=== PATIENT | female | born 1950 | race Caucasian/White ===

== ENCOUNTER 2023-01-09 12:24 | Outpatient (REF) | payer OTHER, SELFPAY ==
[2023-01-09 12:55] LABS: MANUAL DIFF FLAG NO
[2023-01-09 13:01] LABS: Basophils Percent Auto 0.5 % (0-2); Eosinophils Absolute Auto 0.1 X10*3/uL (0.0-0.4); Hematocrit 36.4 % (37.0-47.0); Hemoglobin 12.5 g/dl (12.0-16.0); Imm Gran Abs Auto 0.02 X10*3/uL (0.00-0.03); Imm Gran Pct Auto 0.3 % (0.0-0.4); Lymphocytes Absolute Auto 1.1 X10*3/uL (1.2-4.9); Lymphocytes Percent Auto 18.4 % (20-40); Mean Corpuscular HGB Conc 34.3 g/dl (31.0-35.0); Mean Corpuscular Hemoglobin 32.1 pg (27.0-33.0); Mean Corpuscular Volume 93.3 fL (80.0-98.0); Mean Platelet Volume 8.7 fL (9.4-12.3); Monocytes Absolute Auto 0.6 X10*3/uL (0.1-1.2); Monocytes Percent Auto 9.6 % (2-11); Neutrophils Absolute Auto 4.2 x10*3/uL (2.0-8.3); Neutrophils Percent Auto 69.2 % (45-73); Platelet Count 337 X10*3/uL (160-400)
[2023-01-09 14:58] LABS: Alanine Aminotransferase 10 U/L (0-31); Albumin Level 4.5 g/dL (3.5-5.0); Alkaline Phosphatase 70 U/L (39-117); Anion Gap 13 (12-20); Aspartate Amino Transferase 15 U/L (5-31); Bilirubin Total 0.4 mg/dL (0.0-1.0); Blood Urea Nitrogen 25 mg/dL (9-16); Calcium 9.6 mg/dL (8.4-10.2); Carbon Dioxide 26 mmol/L (22-29); Chloride 101 mmol/L (96-108); Estimated Glomerular Filt Rate 52; Glucose Random 101 mg/dL (60-115); Potassium 5.3 mmol/L (3.3-5.1); Sodium 135 mmol/L (135-145); Total Protein 7.2 g/dL (6.5-8.0); Vitamin D 25-OH Total 79.8 ng/mL (>30)
== END 2023-01-09 12:25 | disposition home or self-care (01) ==
LOC: HO.MANLDS 12:24
PROVIDERS: Visit Provider Internal Medicine
DX: I10 Essential (primary) hypertension (principal); E55.9 Vitamin D deficiency, unspecified
CPT/HCPCS: 36415; 80053; 82306; 85025

== ENCOUNTER 2023-03-14 09:16 | Outpatient (REF) | payer OTHER, SELFPAY ==
[2023-03-14 12:04] LABS: Anion Gap 12 (12-20); Blood Urea Nitrogen 20 mg/dL (9-16); Calcium 9.4 mg/dL (8.4-10.2); Carbon Dioxide 27 mmol/L (22-29); Chloride 107 mmol/L (96-108); Estimated Glomerular Filt Rate 55; Glucose Random 104 mg/dL (60-115); Potassium 4.7 mmol/L (3.3-5.1); Sodium 141 mmol/L (135-145)
== END 2023-03-14 09:17 | disposition home or self-care (01) ==
LOC: HO.MANLDS 09:16
PROVIDERS: Visit Provider Internal Medicine
DX: E87.1 Hypo-osmolality and hyponatremia (principal)
CPT/HCPCS: 36415; 80048

== ENCOUNTER 2023-03-21 08:53 | Outpatient (REF) | payer OTHER, SELFPAY ==
[2023-03-21 11:49] LABS: Anion Gap 13 (12-20); Blood Urea Nitrogen 17 mg/dL (9-16); Calcium 9.7 mg/dL (8.4-10.2); Carbon Dioxide 27 mmol/L (22-29); Chloride 100 mmol/L (96-108); Estimated Glomerular Filt Rate 53; Glucose Random 92 mg/dL (60-115); Sodium 135 mmol/L (135-145)
== END 2023-03-21 08:54 | disposition home or self-care (01) ==
LOC: HO.MANLDS 08:53
PROVIDERS: Visit Provider Internal Medicine
DX: E87.1 Hypo-osmolality and hyponatremia (principal)
CPT/HCPCS: 36415; 80048

== ENCOUNTER 2023-03-28 09:18 | Outpatient (REF) | payer OTHER, SELFPAY ==
[2023-03-28 12:15] LABS: Anion Gap 9 (12-20); Blood Urea Nitrogen 14 mg/dL (9-16); Calcium 9.3 mg/dL (8.4-10.2); Carbon Dioxide 31 mmol/L (22-29); Chloride 102 mmol/L (96-108); Estimated Glomerular Filt Rate 58; Glucose Random 110 mg/dL (60-115); Potassium 5.6 mmol/L (3.3-5.1); Sodium 136 mmol/L (135-145)
== END 2023-03-28 09:19 | disposition home or self-care (01) ==
LOC: HO.MANLDS 09:18
PROVIDERS: Visit Provider Internal Medicine
DX: E87.1 Hypo-osmolality and hyponatremia (principal)
CPT/HCPCS: 36415; 80048

== ENCOUNTER 2023-03-31 09:48 | Outpatient (REF) | payer OTHER, SELFPAY ==
[2023-03-31 12:24] LABS: Anion Gap 13 (12-20); Blood Urea Nitrogen 20 mg/dL (9-16); Calcium 9.6 mg/dL (8.4-10.2); Carbon Dioxide 29 mmol/L (22-29); Chloride 104 mmol/L (96-108); Estimated Glomerular Filt Rate 55; Glucose Random 114 mg/dL (60-115); Potassium 5.6 mmol/L (3.3-5.1); Sodium 140 mmol/L (135-145)
== END 2023-03-31 09:49 | disposition home or self-care (01) ==
LOC: HO.MANLDS 09:48
PROVIDERS: Visit Provider Internal Medicine
DX: E87.1 Hypo-osmolality and hyponatremia (principal)
CPT/HCPCS: 36415; 80048

== ENCOUNTER 2023-04-11 11:26 | Outpatient (REF) | payer OTHER, SELFPAY ==
[2023-04-11 14:44] LABS: Anion Gap 14 (12-20); Blood Urea Nitrogen 22 mg/dL (9-16); Calcium 9.4 mg/dL (8.4-10.2); Carbon Dioxide 28 mmol/L (22-29); Chloride 106 mmol/L (96-108); Estimated Glomerular Filt Rate > 60; Glucose Random 87 mg/dL (60-115); Potassium 4.7 mmol/L (3.3-5.1); Sodium 143 mmol/L (135-145)
== END 2023-04-11 11:27 | disposition home or self-care (01) ==
LOC: HO.MANLDS 11:26
PROVIDERS: Visit Provider Internal Medicine
DX: E87.5 Hyperkalemia (principal)
CPT/HCPCS: 36415; 80048

== ENCOUNTER 2024-08-09 11:45 | Outpatient (REF) | payer OTHER, SELFPAY ==
[2024-08-09 13:48] LABS: Appearance Urine Clear; Color Urine Yellow; Glucose Urine UA Negative (Negative); Leukocyte Esterase Urine Negative (Negative); Nitrite Urine Negative (Negative); PH 6.5 (5.0-9.0); Specific Gravity - Urine <= 1.005 (1.005-1.025); Urine Blood Negative (Negative); Urine Ketones Negative (Negative); Urine Protein Negative (Neg-Trace)
== END 2024-08-09 11:46 | disposition home or self-care (01) ==
LOC: HO.MANLDS 11:45
PROVIDERS: Physician Assistant; Visit Provider Internal Medicine
DX: N39.0 Urinary tract infection, site not specified (principal)
CPT/HCPCS: 81003

== ENCOUNTER 2024-12-20 14:00 | Outpatient (REF) | payer OTHER, SELFPAY ==
--- OUTSIDE RECORDS SUMMARY | 2024-12-20 14:22 | XMS_ITS | Continuity of Care Document ---
Author Organization [facility] Address [address] [place] [place] [address] Assessment Encounter Date Assessment Date Assessment LastModified by Organization Details LastModified Time 12/20/2024 12/20/2024 The patient was advised to continue a healthy diet and exercise regularly. 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 Labs will be sent to evaluate blood count, renal function lipids and vitamin D. Not available 12/20/2024 13:52:21 Plan of Treatment Reminders Order Date Submit Date Provider Last Modified By Organization Details Last Modified Time Details Appointments MEDICARE ANNUAL WELLNESS 2024 01:30P M DR ENCINAS Not available Not available Not available FOLLOW UP 15 2024 02:30P M DR ENCINAS Not available Not available Not available Lab ESR (erythroc yte sedimenta tion rate), blood - as needed 2024 025 [facility], [place], [address], 12/20/2024 13:58:24 Referral None recorded. Procedures None recorded. Surgeries None recorded. Imaging bone density 2024 025 [facility], [address] [place], [address], 12/20/2024 13:52:48 Medication Orders prednison e 10 mg tablet 2024 025 [facility], [address] [place], [address], 12/20/2024 13:57:05 Patient TargetsNo targets recorded. Patient Instructions Encounter Date Encounter Id Patient Instructions Last Modified By Organization Details Last Modified Time 12/20/2024 [id number] polymyalgia rheumatica: care instructions Not available 12/20/2024 13:57:03 Reason for Referral None Reported. Problems Name Problem SNOMED Code Status Onset Date Resolution Date Notes Provider Name and Address Organization Details Recorded Time Neck pain 89357774 Active 2018 Not Available [facility] 3 15:31:16 Irritabl e bowel syndrome with diarrhea 266473018 Active 2018 Not Available [facility] 3 15:31:16 Kate angular cheiliti s 593617708 Active 2022 Not Available [facility] 3 15:31:16 Supraven tricular tachycar pavan 8532659 Active 2022 Not Available [facility] 3 15:31:16 Nummular eczema 51151472 Active 2022 Not Available [facility] 3 15:31:16 Hyperkal emia 38691813 Active 2022 Not Available [facility] 3 15:31:16 Left upper quadrant pain 981999319 Active 2022 Not Available [facility] 3 15:31:16 Divertic ulosis of colon 651823630 Active 2022 Justin Encinas DO [address] [place], [address], [facility] 3 10:01:46 Pain of left breast 8298204685 Active 2023 MICHELE SOSA [address] [place], [address], [facility] 4 12:10:58 Acute mastitis 51337127 Active 2023 MICHELE SOSA [address] [place], [address], [facility] 4 12:12:23 Overacti ve urinary bladder 305490392 Active 2023 MICHELE SOSA [address] [place], [address], [facility] 4 12:14:24 Mass of left breast 68941668640 221418 Active 2023 MICHELE SOSA [address] [place], [address], [facility] 4 11:59:26 Depressi ve disorder 98522665 Active 2023 MICHELE SOSA [address] [place], [address], [facility] 4 14:26:38 Acute urinary tract infectio n 122355578 Active 2023 MICHELE SOSA [address] [place], [address], [facility] 4 14:29:13 Dysuria- frequenc y syndrome 1188593 Active 2023 MICHELE SOSA [address] [place], [address], [facility] 4 14:43:47 Postmeno pausal osteopen ia 207549185 Active 2024 Justin Encinas DO [address] [place], [address], [facility] 5 13:50:31 Polymyal sandra rheumati ca 00062353 Active 2024 Justin Encinas DO [address] [place], [address], [facility] 5 13:52:30 [facility] hyperten tay 67397615 Active 2017 Not Available [facility] 3 15:31:16 Degenera tion of interver tebral disc 84813055 Active 2017 Not Available [facility] 3 15:31:16 Alopecia 20366468 Active 2017 Not Available [facility] 3 15:31:16 Insomnia 521684021 Active 2017 Not Available [facility] 3 15:31:16 Anxiety 52690061 Active 2017 Not Available [facility] 3 15:31:16 Knee pain Active 2017 Not Available [facility] 3 15:31:16 Hyponatr emia 01684766 Active 2017 Hospitali zed from 03/31 - 04/02 N/V/D complicat ed by HCTZ Not Available [facility] 3 15:31:16 Disorder of lung 50606843 Active [address] 07/13/17 repeat 01/28 Not Available [facility] 3 15:31:16 Anemia 972852530 Active 2017 Hospitali zation 06/23 GI bleed, EGD non bleeding ulcers Not Available [facility] 3 15:31:16 Adenomat ous polyp of colon 263006655 Active 2017 c scop Not Available [facility] 3 15:31:16 Left bundle branch block 33196984 Active 2017 Not Available [facility] 3 15:31:16 Notes:Some problems listed i n Documents: #[id number], #[id number] could not be added to this patient's chart. Please review these documents and add these problems to the patient's chart manually as needed. Problem Notes None recorded. Procedures Surgical History Date Name Laterality Status Provider Name and Address Organization Details Recorded Time 07/18/20 23 Suture/Staple removal completed MICHELE SOSA [address] [place] [address], [address], [facility] 07/19/2023 08:50:53 06/26/20 17 Colonoscopy completed Kanwal Young [facility] 06/20/2018 11:36:37 Imaging Results None recorded. Procedure Notes None recorded. Medical Equipment None Reported. Allergies Allergen ID Allergen Name Allergen Category Reaction Reaction Severity Criticality Documentation Date Start Date Code Code System Note Provider Name and Address Organization Details Recorded Time 6708 spironola ctone medicatio n other severe Not available 03/10/2023 9997 RxNorm sever e hypon atrem ia occur ed Not Available [facility] 3 15:31:16 Medications Name Sig Start Date Stop Date Status Note LastModified by Organization Details LastModified Time prednisone 10 mg tablet Take 4 tablets every day by oral route for 30 days. 2024 active Not Available Not Available Not Avai lable doxycycline hyclate 100 mg capsule TAKE 1 CAPSULE BY MOUTH TWICE A DAY FOR 7 DAYS 07/08 completed Not Available Not Available Not Available oxybutynin chloride ER 10 mg tablet,exte nded release 24 hr TAKE 1 TABLET BY MOUTH EVERY DAY active Not Available Not Available No t Available azithromyci n 250 mg tablet TAKE 2 TABLETS (500 MG) BY ORAL ROUTE ONCE DAILY FOR 1 DAY THEN 1 TABLET (250 MG) BY ORAL ROUTE ONCE DAILY FOR 4 DAYS 03/30 completed Not Available Not Available Not Available fluticasone propionate 0.05 % topical cream 05/22 completed Not Available Not Available Not Available lisinopril 20 mg tablet TAKE 1 TABLET BY MOUTH EVERY DAY FOR 90 DAYS 07/18 completed Not Available Not Available Not Available prednisone 20 mg tablet TAKE 2 TABLETS BY MOUTH EVERY DAY FOR 3 DAYS NEEDED FOR FLARE 01/09 completed Not Available Not Available Not Available metoprolol succinate ER 100 mg tablet,exte nded release 24 hr TAKE 1 TABLET BY MOUTH EVERY DAY active Not Available Not Available No t Available amlodipine 5 mg tablet TAKE 1 TABLET BY MOUTH EVERY DAY 01/09 completed Not Available Not Available Not Available sulfamethox azole 800 mg-trimetho prim 160 mg tablet TAKE 1 TABLET BY MOUTH EVERY 12 HOURS FOR 7 DAYS active Not Available Not Available No t Available minoxidil 2.5 mg tablet TAKE 1 TABLET BY MOUTH DAILY active Not Available Not Available No t Available triamcinolo ne acetonide 0.1 % topical cream APPLY THIN COAT TO AFFECTED AREA TWICE A DAY 07/08 completed Not Available Not Available Not Available spironolact one 25 mg tablet TAKE 1 TABLET BY MOUTH TWICE A DAY 03/10 completed Not Available Not Available Not Available Tessalon Perles 100 mg capsule Take 1 capsule 3 times a day by oral route. 03/30 completed Not Available Not Available Not Available lorazepam 0.5 mg tablet TAKE 1 TABLET BY MOUTH THREE TIMES A DAY NEEDED FOR 7 DAYS APPT NEEDED FOR FURTHER REFILLS 03/10 completed Not Available Not Available Not Available amlodipine 10 mg tablet TAKE 1 TABLET BY MOUTH EVERY DAY 07/10 completed Not Available Not Available Not Available triamcinolo ne acetonide 0.1 % topical ointment APPLY A THIN LAYER TO THE AFFECTED AREA(S) BY TOPICAL ROUTE 2 TIMES PER DAY for 2 weeks 07/20 completed Not Available Not Available Not Available clotrimazol e-betametha sone 1 %-0.05 % topical cream APPLY TO AFFECTED AREA TWICE A DAY FOR 2 WEEKS IN THE MORNING AND EVENING (AND SURROUNDI NG AREAS) 03/10 completed Not Available Not Available Not Available lisinopril 10 mg tablet Take 1 tablet every day by oral route for 90 days. 07/20 completed Not Available Not Available Not Available oxybutynin chloride ER 5 mg tablet,exte nded release 24 hr TAKE 1 TABLET BY MOUTH EVERY DAY FOR 30 DAYS active Not Available Not Available No t Available omeprazole 20 mg capsule,del ayed release 03/19 completed Not Available Not Available Not Available mometasone 0.1 % topical ointment PLEASE SEE ATTACHED FOR DETAILED DIRECTION S 07/08 completed Not Available Not Available Not Available zolpidem 5 mg tablet TAKE 1 TABLET BY MOUTH EVERY DAY AT BEDTIME NEEDED 02/20 completed Not Available Not Available Not Available metoprolol succinate ER 25 mg tablet,exte nded release 24 hr TAKE 1 TABLET BY MOUTH EVERY DAY 01/09 completed Not Available Not Available Not Available Cheratussin AC 10 mg-100 mg/5 mL oral liquid Take 10 mL every 6 hours by oral route for 7 days. 05/08 completed Not Available Not Available Not Available zolpidem 10 mg tablet TAKE 1 TABLET BY MOUTH NEEDED FOR SLEEP NOT FOR DAILY USE MUST LAST 45 DAYS PER MD active Not Available Not Available No t Available methylpredn isolone 4 mg tablets in a dose pack 24 mg PO on day 1, then decr. by 4 mg/day x5 days per dose pack instructi ons 03/30 completed Not Available Not Available Not Available lisinopril 40 mg tablet TAKE 1 TABLET BY MOUTH EVERY DAY- needs appt for any further refills 2020 active Not Available Not Available Not Avai lable finasteride 5 mg tablet TAKE 1 TABLET BY MOUTH EVERY DAY 12/20 completed Not Available Not Available Not Available mometasone 0.1 % topical cream APPLY TO AFFECTED AREAS TWICE A DAY FOR 1 WEEK, THEN TAKE 1 WEEK OFF. REPEAT NEEDED 12/20 completed Not Available Not Available Not Available Ventolin HFA 90 mcg/actuati on aerosol inhaler 2 puffs inhaled q4-6h prn 03/30 completed Not Available Not Available Not Available escitalopra m 5 mg tablet TAKE 1 TABLET BY MOUTH EVERY DAY active Not Available Not Available No t Available metoprolol tartrate 25 mg tablet TAKE 1 TABLET TWICE A DAY BY ORAL ROUTE FOR 90 DAYS. 07/10 completed Not Available Not Available Not Available tizanidine 4 mg capsule 01/09 completed Not Available Not Available Not Available benzonatate Take one tablet 3 times a day 04/27 completed Not Available Not Available Not Available Mucinex DM 05/08 completed Not Available Not Available Not Available hydrochloro thiazide 12.5 mg tablet 03/19 completed Not Available Not Available Not Available cyclobenzap rine 7.5 mg tablet TAKE 1 TABLET BY MOUTH AT BEDTIME FOR 14 DAYS*NOT CVD* 01/09 completed Not Available Not Available Not Available Shingrix (PF) 50 mcg/0.5 mL intramuscul ar suspension, kit 02/20 completed Not Available Not Available Not Available Fluad Quad 2546-9628(6 5yr up)(PF) 60 mcg (15 mcg x 4)/0.5mL IM syringe ADM 0.5ML IM UTD 01/09 completed Not Available Not Available Not Available Vitals Date Recorded Body height Body mass index (BMI) Body weight Heart rate Oxygen saturation Oxygen saturation in Arterial blood by Pulse oximetry Systolic blood pressure Diastolic blood pressure Provider Name and Address Organization Details Last Updated DateTime 5 151.13 cm 25.8 kg/m2 86195.0 1 g 80 /min 98 % 98 % 170 mm[Hg] 80 mm[Hg] [facility] 5 13:38:05 Social History Question Answer Notes LastModified by Organizat ion Details LastModified Time Tobacco Smoking Status Former Smoker [facility] 12/20/2024 13:35:59 What Was The Date Of Your Most Recent Tobacco Screening? 12/20/2024 [email or web address] Information not available 12/20/2024 How Many Years Have You Smoked Tobacco? 40 [id number] Information not available 09/15/2020 Do You Or Have You Ever Used Any Other Forms Of Tobacco Or Nicotine? No Information not available 01/09/2023 Sex: Unknown Functional Status None recorded. Mental Status None recorded. Family History Nothing Reported. Medical History No medical history recorded. Gynecological HistoryNo gynecological history recorded. Obstetrics History GPAL:G 0 P 0 0 0 0 Immunizations Vaccine Type Date Status Note Provider Nam e and Address Organization Details Recorded Time influenza, unspecified formulation 2 completed Not Available [facility] 09/02/2023 15:31:16 influenza, unspecified formulation 4 completed Addison goss [facility] 09/30/2024 08:11:09 Influenza, split virus, quadrivalent, preservative 9 completed Not Available [facility] 09/02/2023 15:31:16 Pneumococcal conjugate PCV 13 9 completed Not Available [facility] 09/02/2023 15:31:16 Past Encounters Encounter ID Performer Location Encounter Start Date Encounter Closed Date Diagnosis/Indication Diagnosis SNOMED-CT Code Diagnosis ICD10 Code Diagnosis Note [id number] Justin Encinas DO [facility] [address],[place] [address] 12/20/2024 13:31:00 12/20/2024 13:57:29 Active or passive immunization 475529060 Z23 Adult heal th examination 850946336 Z00.01 doing wel except for what appears to be PMR Depression screening 171 046530 Z13.31 neg Postmenopa usal osteopenia 031940733 M85.80 Polymyalgi a rheumatica 25197768 M35.3 Health Concerns Section Related Observation LastModified by Organization Detai ls LastModified Time None Recorded Concern Status LastModified by Organization Details LastModified Time None Recorded Payers Encounter Date Sequence Insurance Name Policy Number Policy Reed Covered Member ID Reed Member ID Guarantor Name 12/20/2024 2 MEDICARE [place]: [facility] Emma Godwin [id number] Emma Godwin 12/20/[address] [facility] (MEDICARE REPLACEMENT/A DVANTAGE - HMO) [id number] Emma Godwin [id number] Emma Godwin Notes Date Note Type Note Provider Name a nd Address Organization Details Recorded Time 5 text/html Annual WellnessReported bypatient.Diet and Nutrition:healthy diet Fracture Risk:no history of fractures; no recent explained fracture; no sudden unexplained fractures; no previous musculoskeletal injuries Physical Activity:good physical condition;does not exercise on a regular basis;decreased physical activity; due to recent pains Additional Lifestyle Factors:no tobacco use; no alcohol intake; stopped drinking alcohol Depression Risk:never feels sad, empty, or tearful; no loss of interest in activities; no significant changes in weight; no sleep disturbances or insomnia; no agitation; no loss of energy; no feelings of worthlessness or guilt; no thoughts of suicide; no history of depression; no history of mood disorders Hearing:no loss of hearing Vision:no vision problems here for wellnessrelates began over a month agovery sore muscle in upper arms and upper thighs hurts so much it can be diff to dressrelates tried yoga etc and not able to Justin AYnes Encinas DO [address] [facility], [place], [address], [facility] 12/20/2024 13:57:28 OBGyn Episode No OBEpisode recorded.
--- OUTSIDE RECORDS SUMMARY | 2024-12-20 14:22 | XMS_ITS | Data Portability ---
Author Organization [facility], Home Service Address [address] [place] [address] Assessment Encounter Date Assessment Date Assessment LastModified by Organization Details LastModified Time 12/20/2024 12/20/2024 The patient was advised to continue a healthy diet and exercise regularly. have a mammogram have a septic tank servicer evaluation have a dermatology skin screening. Labs [...] Not available Not available Not available Lab urinalysi s, dipstick 2023 024 [email or web address], [address] [place] [address], [address], [place], [address], 07/08/2024 14:23:19 ESR (erythroc yte sedimenta tion rate), blood - as needed 2024 025 [facility], [place], [address], 12/20/2024 13:58:24 Referral None recorded. Procedures None recorded. Surgeries None recorded. Imaging MAMMO, diagnosti c, digital, bilateral - left breast pain and possible lump inner lower quadrant around 6-7 oclock 2023 024 [email or web address] Not available 02/27/2024 15:25:26 bone density 2024 025 [facility], [address], [place], [address], 12/20/2024 13:52:48 Medication Orders oxybutyni n chloride ER 5 mg tablet,ex tended release 24 hr 2023 024 [email or web address] [facility] [address] [place], [address], 07/07/2024 09:24:40 doxycycli ne hyclate 100 mg capsule 2023 024 [facility] [address] [place], [address], 07/08/2024 14:25:40 Bactrim DS 800 mg-160 mg tablet 2023 024 [facility] [address] [place], [address], 07/08/2024 14:24:40 escitalop sangeetha 5 mg tablet [email or web address] [facility], [address] [place], [address], 07/30/2024 13:43:29 prednison e 10 mg tablet 2024 025 [facility] [address] [place], [address], 12/20/2024 13:57:05 Patient TargetsNo targets recorded. Patient Instructions Encounter Date Encounter Id Patient Instructions Last Modified By Organization Details Last Modified Time 12/20/2024 [id number] polymyalgia rheumatica: care instructions Not available 12/20/2024 13:57:03 Reason for Referral None Reported. Results Created Date Observation Date Name Description Value Unit Range Abnormal Flag Note LastModifiedBy Organization Detail LastModifiedTime 07/08/20 24 07/08/2024 urina lysis , dipst ick Leukocytes Modera te Not Available [facility] [address] [facility] [address], [place], [address], 07/08/2024 13:59:32 07/08/20 24 07/08/2024 urina lysis , dipst ick Nitrite negati ve Not Available [facility] [address] [address] [address], [place], [address], 07/08/2024 13:59:32 07/08/20 24 07/08/2024 urina lysis , dipst ick Urobilinogen .2 Not Available [facility] [address], [place], [address], 07/08/2024 13:59:32 07/08/20 24 07/08/2024 urina lysis , dipst ick Protein Trace Not Available [address], [place], [address], 07/08/2024 13:59:32 07/08/20 24 07/08/2024 urina lysis , dipst ick pH 6.0 Not Available [address], [place], [address], 07/08/2024 13:59:32 07/08/20 24 07/08/2024 urina lysis , dipst ick Blood Hemoly zed: Trace Not Available [address], [place], [address], 07/08/2024 13:59:32 07/08/20 24 07/08/2024 urina lysis , dipst ick Specific Barton 1.010 Not Available [address], [place], [address], 07/08/2024 13:59:32 07/08/20 24 07/08/2024 urina lysis , dipst ick Ketone Negati ve Not Available [facility] [address] [address], [place], [address], 07/08/2024 13:59:32 07/08/20 24 07/08/2024 urina lysis , dipst ick Bilirubin Negati ve Not Available [facility] [address] [facility] [address], [place], [address], 07/08/2024 13:59:32 07/08/20 24 07/08/2024 urina lysis , dipst ick Glucose Negati ve Not Available [facility] [address] [facility] [address], [place], [address], 07/08/2024 13:59:32 07/08/20 24 07/08/2024 urina lysis , dipst ick Appearance Slight ly Cloudy Not Available [facility] [address] [facility] [address], [place], [address], 07/08/2024 13:59:32 07/08/20 24 07/08/2024 urina lysis , dipst ick Color Pale Yellow Not Available [facility] [address] [facility] [address], [place], [address], 07/08/2024 13:59:32 09/01/20 23 08/31/2023 CT, abdom en, w/ contr ast No observ ation record ed. [email or web address] [address], [place], [address], 09/04/2023 08:43:42 09/26/20 23 09/25/2023 MAMMO , scree tiki, digit al, bilat eral No observ ation record ed. [facility] [address] [place] [address], [address], 09/27/2023 06:35:35 08/14/20 24 08/14/2024 US, bladd er No observ ation record ed. [email or web address] [address], [place], [address], 08/16/2024 14:42:47 Result Notes None recorded. Problems Name Problem SNOMED Code Status Onset Date Resolution Date Notes Provider Name and Address Organization Details Recorded Time Neck pain 82593486 Active 2018 Not Available [facility] 3 15:31:16 Irritabl e bowel syndrome with diarrhea 500991424 Active 2018 Not Available [facility] 3 15:31:16 Kate angular cheiliti s 876160207 Active 2022 Not Available [facility] 3 15:31:16 Supraven tricular tachycar pavan 2749900 Active 2022 Not Available [facility] 3 15:31:16 Nummular eczema 17658257 Active 2022 Not Available [facility] 3 15:31:16 Hyperkal emia 89250103 Active 2022 Not Available [facility] 3 15:31:16 Left upper quadrant pain 858305792 Active 2022 Not Available [facility] 3 15:31:16 Divertic ulosis of colon 132859526 Active 2022 Justin Encinas DO [address] [place], [address], [facility] 3 10:01:46 Pain of left breast 8471685729 Active 2023 MICHELE SOSA [address] [place], [address], [facility] 4 12:10:58 Acute mastitis 52043625 Active 2023 MICHELE SOSA [address] [place], [address], [facility] 4 12:12:23 Overacti ve urinary bladder 560985890 Active 2023 MICHELE SOSA [address] [place], [address], [facility] 4 12:14:24 Mass of left breast 60161008044 268544 Active 2023 MICHELE SOSA [address] [place], [address], [facility] 4 11:59:26 Depressi ve disorder 96555478 Active 2023 MICHELE SOSA [address] [place], [address], [facility] 4 14:26:38 Acute urinary tract infectio n 232490738 Active 2023 MICHELE SOSA [address] [place], [address], [facility] 4 14:29:13 Dysuria- frequenc y syndrome 0336498 Active 2023 MICHELE SOSA [address] [place], [address], [facility] 4 14:43:47 Postmeno pausal osteopen ia 079812824 Active 2024 Justin Encinas, DO [address] [place] [address], [address], [facility] 5 13:50:31 Polymyal sandra rheumati ca 12256650 Active 2024 Justin Encinas, DO [address] [place] [address], [address], [facility] 5 13:52:30 [facility] hyperten tay 17072530 Active 2017 Not Available [facility] 3 15:31:16 Degenera tion of interver tebral disc 69341962 Active 2017 Not Available [facility] 3 15:31:16 Alopecia 22474090 Active 2017 Not Available [facility] 3 15:31:16 Insomnia 521897273 Active 2017 Not Available [facility] 3 15:31:16 Anxiety 45573768 Active 2017 Not Available [facility] 3 15:31:16 Knee pain Active 2017 Not Available [facility] 3 15:31:16 Hyponatr emia 69503377 Active 2017 Hospitali zed from 03/31 - 04/02 N/V/D complicat ed by HCTZ Not Available [facility] 3 15:31:16 Disorder of lung 33451182 Active [address] 07/13/17 repeat 01/28 Not Available [facility] 3 15:31:16 Anemia 909840138 Active 2017 Hospitali zation - 06/23 GI bleed, EGD non bleeding ulcers Not Available [facility] 3 15:31:16 Adenomat ous polyp of colon 704209874 Active 2017 c scop Not Available [facility] 3 15:31:16 Left bundle branch block 00099276 Active 2017 Not Available [facility] 3 15:31:16 Notes:Some problems listed i n Documents: #[id number], #[id number] could not be added to this patient's chart. Please review these documents and add these problems to the patient's chart manually as needed. Problem Notes None recorded. Procedures Surgical History Date Name Laterality Status Provider Name and Address Organization Details Recorded Time 07/18/20 23 Suture/Staple removal completed MICHELE SOSA [address] [place], [address], [facility] 07/19/2023 08:50:53 06/26/20 17 Colonoscopy completed Kanwal Young [facility] 06/20/2018 11:36:37 Imaging Results Imaging Date Name Status LastModified by Organiz ation Details LastModified Time 08/31/2023 CT, abdomen, w/ contrast completed [email or web address] [address], [address], 09/04/2023 08:43:42 09/25/2023 MAMMO, screening, digital, bilateral completed [facility] [address] [place] [address], [address], 09/27/2023 06:35:35 08/14/2024 US, bladder completed [email or web address] Diana Gimenez [address], [address], 08/16/2024 14:42:47 Procedure Notes None recorded. Medical Equipment None Reported. Allergies Allergen ID Allergen Name Allergen Category Reaction Reaction Severity Criticality Documentation Date Start Date Code Code System Note Provider Name and Address Organization Details Recorded Time 6708 spironola ctone medicatio n other severe Not available 03/10/2023 9997 RxNorm sever e hypon atrem ia occur ed Not Available [facility] 15:31:16 Medications Name Sig Start Date Stop [...] Available Not Available Not Available Fluad Quad 7362-0102(6 5yr up)(PF) 60 mcg (15 mcg x 4)/0.5mL IM syringe ADM 0.5ML IM UTD 01/09 completed Not Available Not Available Not Available Vitals Date Recorded Body height Body mass index (BMI) Body weight Oxygen saturation Oxygen saturation in Arterial blood by Pulse oximetry Heart rate Systolic blood pressure Diastolic blood pressure Provider Name and Address Organization Details Last Updated DateTime 3 151.13 cm 24.8 kg/m2 07812.0 5 g 97 % 97 % 90 /min 120 mm[Hg] 74 mm[Hg] Radha Richardson [facility] 3 10:06:40 Date Recorded Body height Body mass index (BMI) Body weight Heart rate Oxygen saturation Oxygen saturation in Arterial blood by Pulse oximetry Systolic blood pressure Diastolic blood pressure Provider Name and Address Organization Details Last Updated DateTime 4 151.13 cm 26 kg/m2 49814.5 2 g 71 /min 95 % 95 % 124 mm[Hg] 80 mm[Hg] Wiliam Chen [facility] 4 11:56:16 Date Recorded Body height Body mass index (BMI) Body weight Heart rate Oxygen saturation Oxygen saturation in Arterial blood by Pulse oximetry Systolic blood pressure Diastolic blood pressure Provider Name and Address Organization Details Last Updated DateTime 4 151.13 cm 25.9 kg/m2 37551.7 3 g 76 /min 95 % 95 % 148 mm[Hg] 78 mm[Hg] Grace Perez [facility] 4 14:05:33 Date Recorded Body height Body mass index (BMI) Body weight Heart rate Oxygen saturation Oxygen saturation in Arterial blood by Pulse oximetry Systolic blood pressure Diastolic blood pressure Provider Name and Address Organization Details Last Updated DateTime 5 151.13 cm 25.8 kg/m2 46948.0 1 g 80 /min 98 % 98 % 170 mm[Hg] 80 mm[Hg] Radha Richardson [facility] 5 13:38:05 Social History Question Answer Notes LastModified by Organizat ion Details LastModified Time Tobacco Smoking Status Former Smoker Radha goss [facility] 12/20/2024 13:35:59 What Was The Date Of Your Most Recent Tobacco Screening? 12/20/2024 [email or web address] Information not available 12/20/2024 How Many Years Have You Smoked Tobacco? 40 [id number] Information not available 09/15/2020 Do You Or [...] influenza, unspecified formulation 2 completed Not Available [facility] 09/02/2023 15:31:16 influenza, unspecified formulation 4 [facility] 09/30/2024 08:11:09 Influenza, split virus, quadrivalent, preservative 9 completed Not Available [facility] 09/02/2023 15:31:16 Pneumococcal conjugate PCV 13 9 completed Not Available [facility] 09/02/2023 15:31:16 Past Encounters Encounter ID Performer Location Encounter Start Date Encounter Closed Date Diagnosis/Indication Diagnosis SNOMED-CT Code Diagnosis ICD10 Code Diagnosis Note [id number] February [facility] [address],[place] [address] 03/19/2018 10:01:02 03/19/2018 11:54:51 Acute bronchitis 17219751 J20.9 due to h/o tobacco, there is increased risk for bacterial etiology Essential hypertension 92317414 I10 elevated today, probably due to illness Pharyngitis 946690860 J0 2.9 Ex-smoker 5829868 Z87.89 1 [id number] February [facility] [address],[place] [address] 03/30/2018 08:54:37 03/30/2018 09:49:19 Acute bronchitis 15610632 J20.9 cough has resolved Essential hypertension 23235214 I10 improved Pharyngitis 371362351 J0 2.9 improved Ex-smoker 8463953 Z87.89 1 Abrasion 270231416 S80.2 12A [id number] February [facility] [address] [facility] [address] [address] 04/27/2018 10:10:44 04/27/2018 10:59:42 Essential hypertension 25769491 I10 elevated today, probably due to illness Pharyngitis 726951383 J0 2.9 resolved after initial presentati on Ex-smoker 2495390 Z87.89 1 Upper resp iratory infection 55018423 J06.9 This is likely viral as her lungs are normal she is already on proair if needed continue mucinex- dm she still has tessalon [id number] February [facility] [address] [facility] [address] [address] 05/08/2018 10:38:12 05/08/2018 11:50:59 Essential hypertension 44243329 I10 elevated today, pt left before I remembered to recheck BP. will recheck in a couple weeks at her f/u Ex-smoker 1539185 Z87.89 1 Upper resp iratory infection 13910266 J06.9 resolved, much better Eczema 06283682 L30.9 eyelid dermatitis , likely environmen samantha, but have advised no soaps or make up. will trial eucrisa samples we had in office if fails f/u will trial topical steroid avoid getting eucrisa in the eyes [id number] Sidra [facility] [address] [facility] [address] [address] 05/29/2018 09:08:57 05/29/2018 10:17:23 Essential hypertension 54751148 I10 once again BP was elevated will call to come in for recheck later this week Ex-smoker 8729456 Z87.89 1 Upper resp iratory infection 74891516 J06.9 resolved, much better Eczema 15070705 L30.9 eyelid dermatitis , likely environmen samantha, but have advised no soaps or make up. failed eucrisa [id number] [facility] [address] [facility] [address] [address] 06/01/2018 08:59:08 06/01/2018 09:27:55 Essential hypertension 81696545 I10 BP elevated, but better after 5 minutes of rest before BP measuremen t nonetheles s will increase lisinopril Ex-smoker 5113523 Z87.89 1 Eczema 72838246 L30.9 improving with triamcinol one [id number] [facility] [address] [place] [address],[place] [address] 07/20/2018 10:56:51 07/20/2018 11:25:43 Essential hypertension 23947371 I10 BP elevated, but better after 5 minutes of rest before BP measuremen t nonetheles s will increase lisinopril to 20 mg qd Atopic dermatitis 624869 01 L20.9 [id number] [facility] [address] [place] [address],[place] [address] 08/24/2018 09:40:31 08/24/2018 10:06:39 Essential hypertension 08878257 I10 much better today. will continue current dose Atopic dermatitis 798915 01 L20.9 had allergy testing Insomnia G47.0 0 stable [id number] Justin Encinas [facility] Internal Medicine [address] [place] [address],[place] [address] 02/20/2019 09:14:40 02/20/2019 09:44:49 Essential hypertension 61486721 I10 doing well no major issues Neck pain 17234905 M54.2 severe and sudden episodes Anemia 976104632 D64.9 rechk cbc Disorder of lung 1300621 1 J98.4 had a pulmonary nodule inright lung Insomnia 224125111 G47.0 0 increase to 10 [id number] [facility] [address] [place] [address],[place] [address] 05/22/2019 10:28:10 05/22/2019 11:08:34 Diarrhea 17011385 R19.7 Thoracic back pain 31174 8004 M54.6 conservati ve care ice/heat, nsaids, tylenol f/u if sx persist [id number] [facility] [address] [place] [address],[place] [address] 06/21/2019 09:08:09 06/21/2019 10:28:05 Diarrhea 46541344 R19.7 sx 2 months try cutting out wheat/dair y if related to IBS recommend GI consult to r/u IBD stool cx were negative celiac panel was negative Thoracic back pain 83639 8004 M54.6 better Insomnia 190056182 G47.0 0 stable Essential hypertension 29364145 I10 was advised by pulginny to d/c metoprolol as it may affect sleep she cut it in half but didn't d/c we will d/c the med and start amlodipine then recheck bp in 1 month [id number] Justin Encinas [facility] Internal Medicine [address] [facility] [address] 08/02/2019 11:42:50 08/02/2019 12:17:00 Essential hypertension 10350679 I10 is running a little high so we will increase dose to amlodipine Irritable bowel syndrome with diarrhea 053791232 K58.0 will add cholestyra mine now Anxiety 26865046 F41.9 [id number] Justin Encinas [facility] Internal Medicine [address] [facility],[place] [address] 09/09/2019 11:42:53 09/09/2019 12:11:47 Irritable bowel syndrome with diarrhea 264152138 K58.0 cholestyra mine now exttremely effective and is doing good with bowels Anxiety 01031012 F41.9 see above note Essential hypertension 41826907 I10 bp at home is much better , 120/70's and is stable no prob w/ the meds [id number] Justin Encinas [facility] Internal Medicine [address] [facility] [address] 01/09/2023 11:35:29 01/09/2023 13:27:57 Essential hypertension 03497918 I10 bp at home is much better , 120/70's and is stable no prob w/ the meds Anxiety 02916025 F41.9 see above note Insomnia 461021844 G47.0 0 we will use her old prescripti on that worked well Advance care planning 71 6843754 Z71.89 all set Kate an gular cheilitis 822604084 B37.83 obvious perliche appearance no [place] y [id number] Justin Carrasco Jamir [facility] Internal Medicine [address] [facility] [address] [address] 03/10/2023 14:57:35 03/10/2023 16:06:09 Hyponatremia 45864729 E87.1 she will need to stay off the aldactone must consider as the culprit but she is also started on finasterid e by derm so we will have to keep an eye on the Na+ levels closely as she insists she will take the med as her hair loss has become signif Supraventr icular tachycardia 0909487 I47.1 stable now that hyponatrem ia resolving and she is on metoprolol Nummular eczema 18138714 L30.0 has multiple areas of irritation over legs and trunk [id number] Justin Carrasco DO Jamir [facility] [address] [facility] [address] [address] 04/11/2023 10:39:48 04/11/2023 11:00:50 Hyperkalemia 83052234 E87.5 we will rechk as she does not have any major reason to have this elevated Supraventr icular tachycardia 8966708 I47.1 stable now that hyponatrem ia resolving and she is on metoprolol no further issues [id number] Justin IdaniaYnes Encinas [facility] Internal Medicine [address] [facility] [address] [address] 07/10/2023 10:24:51 07/10/2023 15:58:54 Essential hypertension 29074144 I10 bp here at office is elevated but pt is nervous bp at home is much better , 120/70's and is stable no prob w/ the meds Left upper quadrant pain 547710616 R10.12 ongoing now and not abatingpre sent for many months and is position dependentn o bleeding or melena [id number] MICHELE SOSA [facility] [address] [facility] [address] [address] 07/18/2023 09:55:30 07/19/2023 11:11:19 Essential hypertension 92728761 I10 stable Hyperkalemia 35332210 E8 7.5 stable Hyponatremia 40091599 E8 7.1 stable Removal of simran 51641 001 Z48.02 resolved [id number] uJstin Encinas DO [facility] [address] [facility] [address] [address] 10/04/2023 08:05:33 10/04/2023 10:16:56 Diverticulosis of colon 938526883 K57.30 discussed need for diet change and fiber with h2o etc she understand s will call if pain returns and we will have low threshold to ttreat. [id number] MICHELE SOSA [facility] [address] [facility] [address] [address] 02/16/2024 11:37:16 02/16/2024 14:37:24 Pain of left breast 1809488292 N64.4 agreed to diagnostic mm to r/o new mass Acute mastitis 04759212 N61.0 will set up doxycyclin e, possible mastitis Overactive urinary bladder 615490070 N32.81 will give this a try [id number] MICHELE SOSA [facility] [address] [facility] [address] [address] 07/08/2024 13:53:12 07/08/2024 15:12:47 Acute urinary tract infection 653666975 N39.0 start on bactrim Supraventr icular tachycardia 3122445 I47.10 stable Depressive disorder 3548 9007 F32.0 start small dose [id number] Justin Encinas DO [facility] [address] [facility] [address] [address] 12/20/2024 13:31:00 12/20/2024 13:57:29 Active or passive immunization 035638878 Z23 Adult heal th examination 415108570 Z00.01 doing wel except for what appears to be PMR Depression screening 171 637279 Z13.31 neg Postmenopa usal osteopenia 785042029 M85.80 Polymyalgi a rheumatica 04652027 M35.3 Health Concerns Section Related Observation LastModified by Organization Detai ls LastModified Time None Recorded Concern Status LastModified by Organization Details LastModified Time None Recorded Advance Directives Directive None Recorded Payers Encounter Date Sequence Insurance Name Policy Number Policy Reed Covered Member ID Reed Member ID Guarantor Name 07/18/2023 2 [place] [employer] Vera Godaire [id number] Vera Godaire 07/18/2023 1 [facility] (MEDICARE REPLACEMENT/A DVANTAGE - HMO) [id number] Vera Godaire [id number] Vera Godaire 10/04/2023 2 [place] [employer] Vera Godaire [id number] Vera Godaire 10/04/2023 1 [facility] (MEDICARE REPLACEMENT/A DVANTAGE - HMO) [id number] Vera Godaire [id number] Vera Godaire 02/16/2024 2 MEDICARE [place]: NATIONAL GOVERNMENT SERVICES Vera Godaire [id number] Vera Godaire 02/16/2024 1 [facility] (MEDICARE REPLACEMENT/A DVANTAGE - HMO) [id number] Vera Godaire [id number] Vera Godaire 07/08/2024 2 MEDICARE [place]: NATIONAL GOVERNMENT SERVICES Vera Godaire [id number] Vera Godaire 07/08/2024 1 [facility] (MEDICARE REPLACEMENT/A DVANTAGE - HMO) [id number] Vera Godaire [id number] Vera Godaire 12/20/2024 2 MEDICARE [place]: NATIONAL GOVERNMENT SERVICES Vera Godaire [id number] Vera Godaire 12/20/2024 1 [facility] (MEDICARE REPLACEMENT/A DVANTAGE - HMO) [id number] Vera Godaire [id number] Vera Godaire Notes Date Note Type Note Provider Name a ky Address Organization Details Recorded Time 3 text/html staple removal patient has four simran for a head wound post fall all four removed todayno bleedingno signs of infection wound healed MICHELE SOSA [address] [place] [address], [place], [address], [facility] 07/19/2023 08:51:21 3 text/html patient is evaluated via tele/video assessment per patient consentduring current pandemic has been feeling well and not having any LUQ abd painstates it just faded awaywe reviewed the ct scan in depth and discussed the presence of divertic Justin Encinas DO [address] [place], [address], [facility] 10/04/2023 10:03:10 4 text/html c/o left breast pain the patient is having pain under her left breast, feels patient has left breast painnoted it has been happening for a couple of weeks the patient denies skin changes, discharge the patient does not get pain with movement the patient had recent MM in September was negative besides normal denser breast tissue the patient denies any other associated symptoms denies chest pain, sob, headaches, blurred vision, acid reflux, cough pain is reproducible when pressing on the left breast MICHELE SOSA [address] [place], [id number], [facility] 02/16/2024 12:31:34 4 text/html c/o uti symptoms UTI symptoms: started a few days ago with burning and frequencypositive dipwill send abx SVT stable wanted to try something for depressionnoticed she has more down mood than up moodshusband has commented about her being more sad has never been on anything for depression beforeagreed to lexapro for trial MICHELE SOSA [address] [place], [address], [facility] 07/08/2024 14:30:56 5 text/html Annual WellnessReported bypatient.Diet and Nutrition:healthy [...] yoga etc and not able to Justin A. Jamir, DO [address] [facility], [place], [address], [facility] 12/20/2024 13:57:28 OBGyn Episode No OBEpisode recorded.
[2024-12-20 18:41] LABS: Erythrocyte Sedimentation Rate 64 MM/HR (0-20)
== END 2024-12-20 14:01 | disposition home or self-care (01) ==
LOC: HO.MANLDS 14:00
PROVIDERS: Visit Provider Internal Medicine
DX: M35.3 Polymyalgia rheumatica (principal)
CPT/HCPCS: 36415; 85652

== ENCOUNTER 2025-01-20 09:43 | Outpatient (REF) | payer OTHER, SELFPAY ==
--- OUTSIDE RECORDS SUMMARY | 2025-01-20 10:39 | XMS_ITS | Data Portability ---
Author Organization [facility] Address [address] [address] Assessment Encounter Date Assessment Date Assessment LastModified by Organization Details LastModified Time 12/20/2024 12/20/2024 The patient was advised to continue a healthy diet and exercise regularly. have a mammogram have a senior product manager evaluation have a dermatology skin screening. Labs will be sent to evaluate blood count, renal function lipids and vitamin D. Not available 12/20/2024 13:52:21 Plan of Treatment Reminders Order Date Submit Date Provider Last Modified By Organization Details Last Modified Time Details Appointments FOLLOW UP 15 2024 02:30P M DR ENCINAS Not available Not available Not available Lab ESR (erythroc yte sedimenta tion rate), blood - as needed 2024 025 [facility], [place], [address], 12/23/2024 12:12:01 ESR (erythroc yte sedimenta tion rate), blood - as needed 2024 025 [facility], [place], [address], 12/23/2024 12:12:01 urinalysi s, dipstick 2023 024 celeste [facility], [address] [place] [address], [facility] [address], [place], [address], 07/08/2024 14:23:19 Referral None recorded. Procedures None recorded. Surgeries None recorded. Imaging bone density 2024 025 [facility], [address] [place], [address], 01/03/2025 10:07:30 MAMMO, diagnosti c, digital, bilateral - left breast pain and possible lump inner lower quadrant around 6-7 oclock 2023 024 [email or web address] Not available 02/27/2024 15:25:26 Medication Orders prednison e 10 mg tablet 2024 025 [facility] [address] [place], [address], 12/20/2024 13:57:05 Bactrim DS 800 mg-160 mg tablet 2023 024 [facility] [address] [place], [address], 07/08/2024 14:24:40 escitalop sangeetha 5 mg tablet 2023 024 [email or web address] [facility] [address] [place], [address], 07/30/2024 13:43:29 oxybutyni n chloride ER 5 mg tablet,ex tended release 24 hr 2023 024 [email or web address] [facility] [address] [place], [address], 07/07/2024 09:24:40 doxycycli ne hyclate 100 mg capsule 2023 024 [facility] [address] [place], [address], 07/08/2024 14:25:40 Patient TargetsNo targets recorded. Patient Instructions Encounter Date Encounter Id Patient Instructions Last Modified By Organization Details Last Modified Time 12/20/2024 [id number] polymyalgia rheumatica: care instructions Not available 12/20/2024 13:57:03 Reason for Referral None Reported. Results Created Date Observation Date Name Description Value Unit Range Abnormal Flag Note LastModifiedBy Organization Detail LastModifiedTime 07/08/20 24 07/08/2024 urina lysis , dipst ick Leukocytes Modera te Not Available [address], [place], [address], 07/08/2024 13:59:32 07/08/20 24 07/08/2024 urina lysis , dipst ick Nitrite negati ve Not Available [facility] [address] [facility] [address], [place], [address], 07/08/2024 13:59:32 07/08/20 24 07/08/2024 urina lysis , dipst ick Urobilinogen .2 Not Available [address], [place], [address], 07/08/2024 13:59:32 07/08/20 24 07/08/2024 urina lysis , dipst ick Protein Trace Not Available [address], [place], [address], 07/08/2024 13:59:32 07/08/20 24 07/08/2024 urina lysis , dipst ick pH 6.0 Not Available [address], [place], [address], 07/08/2024 13:59:32 07/08/20 24 07/08/2024 urina lysis , dipst ick Blood Hemoly zed: Trace Not Available [address], [place], [address], 07/08/2024 13:59:32 07/08/20 24 07/08/2024 urina lysis , dipst ick Specific [place] 1.010 Not Available [address], [place], [address], 07/08/2024 13:59:32 07/08/20 24 07/08/2024 urina lysis , dipst ick Ketone Negati ve Not Available [facility] [address] [facility] [address], [place], [address], 07/08/2024 13:59:32 07/08/20 24 07/08/2024 urina lysis , dipst ick Bilirubin Negati ve Not Available [facility] [address] [facility] [address], [place], [address], 07/08/2024 13:59:32 07/08/20 24 07/08/2024 urina lysis , dipst ick Glucose Negati ve Not Available [facility] [address] [facility] [address], [place], [address], 07/08/2024 13:59:32 07/08/20 24 07/08/2024 urina lysis , dipst ick Appearance Slight ly Cloudy Not Available [facility] [address] [facility] [address], [place], [address], 07/08/2024 13:59:32 07/08/20 24 07/08/2024 urina lysis , dipst ick Color Pale Yellow Not Available [facility] [address] [facility] [address], [place], [address], 07/08/2024 13:59:32 09/01/20 23 08/31/2023 CT, abdom en, w/ contr ast No observ ation record ed. [email or web address] [address], [address], 09/04/2023 08:43:42 09/26/20 23 09/25/2023 MAMMO , scree tiki, digit al, bilat eral No observ ation record ed. [facility] [address] [place] [address], [address], 09/27/2023 06:35:35 08/14/20 24 08/14/2024 US, bladd er No observ ation record ed. [email or web address] [facility] [address] [facility], [place], [address], 08/16/2024 14:42:47 Result Notes None recorded. Problems Name Problem SNOMED Code Status Onset Date Resolution Date Notes Provider Name and Address Organization Details Recorded Time Neck pain 93462845 Active 2018 [facility] Available [facility] 3 15:31:16 Irritable bowel syndrome with diarrhea 162533173 Active 2018 Grace goss [facility] 5 10:51:41 Kate angular cheilitis 967820858 Active 2022 Grace goss [facility] 5 10:51:51 Supravent ricular tachycard ia 7398027 Active 2022 Grace goss [facility] 5 10:51:41 Nummular eczema 54670634 Active 2022 Grace goss [facility] 5 10:51:41 Hyperkale adri 18569830 Active 2022 Grace goss [facility] 5 10:51:41 Left upper quadrant pain 805938376 Active 2022 Grace goss [facility] 5 10:51:51 Diverticu losis of colon 660507862 Active 2022 Grace goss [facility] 5 10:51:41 Pain of left breast 7143344218 Active 2023 Grace goss [facility] 5 10:51:51 Acute mastitis 08296239 Active 2023 Grace goss [facility] 5 10:51:51 Overactiv e urinary bladder 060510806 Active 2023 Garce goss [facility] 5 10:51:41 Mass of left breast 23484997553 577058 Active 2023 Gracejesenia Perez wolfgang [facility] 5 10:51:41 Depressiv e disorder 78495654 Active 2023 Grace Chris goss [facility] 5 10:51:41 Acute urinary tract infection 434650439 [facility] 2023 [facility] 10:51:51 Dysuria-f requency syndrome 4338666 Active 2023 Grace Chris goss [facility] 5 10:51:41 Postmenop ausal osteopeni a 347302357 Active 2024 [facility] 5 10:51:41 Polymyalg ia rheumatic a 36361204 Active 2024 [facility] 5 10:51:41 Essential hypertens ion 11813597 Active 2017 Gracejesenia Perez wolfgang [facility] 5 10:51:42 Degenerat ion of intervert ebral disc 02833775 Active 2017 [facility] 5 10:51:42 Alopecia 21175201 Active 2017 [facility] 5 10:51:42 Insomnia 739860889 Active 2017 Grace Perez wolfgang [facility] 5 10:51:41 Anxiety 51177677 Active 2017 Gracejesenia Perez wolfgang [facility] 5 10:51:42 Knee pain Active 2017 [facility] 5 10:51:51 Hyponatre adri 41953764 Active 2017 Hospital[facility] from 03/31 - 04/02 N/V/D complicat ed by MICHAEL goss [facility] 5 10:51:42 Disorder of lung 51443150 Active [address] 07/13/17 repeat 01/28 Grace Perez wolfgang, [facility] 5 10:51:41 Anemia 514805904 Active 2017 [facility] - 06/23 GI bleed, EGD non bleeding ulcers Grace goss, [facility] 5 10:51:41 Adenomato us polyp of colon 391455516 Active 2017 c scop Grace goss, [facility] 5 10:51:41 Left bundle branch block 29546267 Active 2017 Grace Chris goss, [facility] 5 10:51:42 Notes:Some problems listed i n Documents: #[id number], #[id number] could not be added to this patient's chart. Please review these documents and add these problems to the patient's chart manually as needed. Problem Notes None recorded. Procedures Surgical History Date Name Laterality Status Provider Name and Address Organization Details Recorded Time 07/18/20 23 Suture/Staple removal completed MICHELE SOSA [address] [place], [address], [facility] 07/19/2023 08:50:53 06/26/20 17 Colonoscopy completed Kanwal Young [facility] 06/20/2018 11:36:37 Imaging Results Imaging Date Name Status LastModified by Organiz ation Details LastModified Time 08/31/2023 CT, abdomen, w/ contrast completed [email or web address] [address], [address], 09/04/2023 08:43:42 09/25/2023 MAMMO, screening, digital, bilateral completed [facility] [address] [place] [address], [address], 09/27/2023 06:35:35 08/14/2024 US, bladder completed [email or web address] [address], [address], 08/16/2024 14:42:47 Procedure Notes None recorded. Medical Equipment None Reported. Allergies Allergen ID Allergen Name Allergen Category Reaction Reaction Severity Criticality Documentation Date Start Date Code Code System Note Provider Name and Address Organization Details Recorded Time 6708 spironola ctone medicatio n other severe Not available 03/10/2023 9997 RxNorm sever e hypon atrem ia occur ed Not Available [facility] 3 15:31:16 Medications Name Sig Start Date Stop Date Status Note LastModified by Organization Details LastModified Time prednisone 10 mg tablet Take 4 tablets every day by oral route for 14 days. 2024 active Not Available Not Available [...] Not Available Not Available No t Available mometasone 0.1 % topical cream APPLY [...] Available Not Available Not Available Fluad Quad 1038-1127(6 5yr up)(PF) 60 mcg (15 mcg x [...] Updated DateTime 3 151.13 cm 24.8 kg/m2 54224.0 5 g 97 % 97 % 90 /min 120 mm[Hg] 74 mm[Hg] Radha Richardson [facility] 3 10:06:40 Date Recorded Body height Body mass index (BMI) Body weight Heart rate Oxygen saturation Oxygen saturation in Arterial blood by Pulse oximetry Systolic blood pressure Diastolic blood pressure Provider Name and Address Organization Details Last Updated DateTime 4 151.13 cm 26 kg/m2 45021.5 2 g 71 /min 95 % 95 % 124 mm[Hg] 80 mm[Hg] Wiliam [place] [facility] 4 11:56:16 Date Recorded Body height Body mass index (BMI) Body weight Heart rate Oxygen saturation Oxygen saturation in Arterial blood by Pulse oximetry Systolic blood pressure Diastolic blood pressure Provider Name and Address Organization Details Last Updated DateTime 4 151.13 cm 25.9 kg/m2 05675.7 3 g 76 /min 95 % 95 % 148 mm[Hg] 78 mm[Hg] Grace Perez [facility] 4 14:05:33 Date Recorded Body height Body mass index (BMI) Body weight Heart rate Oxygen saturation Oxygen saturation in Arterial blood by Pulse oximetry Systolic blood pressure Diastolic blood pressure Provider Name and Address Organization Details Last Updated DateTime 5 151.13 cm 25.8 kg/m2 88018.0 1 g 80 /min 98 % 98 % 170 mm[Hg] 80 mm[Hg] Radha Richardson [facility] 5 13:38:05 Social History Question Answer Notes LastModified by Organizat ion Details LastModified Time Tobacco Smoking Status Former Smoker Radha goss [facility] 12/20/2024 13:35:59 What Was The Date Of Your Most Recent Tobacco Screening? 12/20/2024 [email or web address] Information not available 12/20/2024 How Many Years Have You Smoked Tobacco? 40 [id number] Information not available 09/15/2020 Do You Or [...] influenza, unspecified formulation 2 completed Not Available [facility] 09/02/2023 15:31:16 influenza, unspecified formulation 4 [facility] 09/30/2024 08:11:09 Influenza, split virus, quadrivalent, preservative 9 completed Not Available [facility] 09/02/2023 15:31:16 Pneumococcal conjugate PCV 13 9 completed Not Available [facility] 09/02/2023 15:31:16 Past Encounters Encounter ID Performer Location Encounter Start Date Encounter Closed Date Diagnosis/Indication Diagnosis SNOMED-CT Code Diagnosis ICD10 Code Diagnosis Note [id number] February [facility] [address] [facility],[place] [address] 03/19/2018 10:01:02 03/19/2018 11:54:51 Acute bronchitis 72260531 J20.9 due to h/o tobacco, there is increased risk for bacterial etiology Essential hypertension 43000745 I10 elevated today, probably due to illness Pharyngitis 724155067 J0 2.9 Ex-smoker 5445207 Z87.89 1 [id number] February [facility] [address] [facility] [facility],[place] [address] 03/30/2018 08:54:37 03/30/2018 09:49:19 Acute bronchitis 51111817 J20.9 cough has resolved Essential hypertension 09669264 I10 improved Pharyngitis 410713331 J0 2.9 improved Ex-smoker 0966633 Z87.89 1 Abrasion 039074039 S80.2 12A [id number] February [facility] [address] [facility] [facility],[place] [address] 04/27/2018 10:10:44 04/27/2018 10:59:42 Essential hypertension 65641198 I10 elevated today, probably due to illness Pharyngitis 024846412 J0 2.9 resolved after initial presentati on Ex-smoker 3339698 Z87.89 1 Upper resp iratory infection 63618049 J06.9 This is likely viral as her lungs are normal she is already on proair if needed continue mucinex- dm she still has tessalon [id number] [facility] [address] [facility] [address] [address] 05/08/2018 10:38:12 05/08/2018 11:50:59 Essential hypertension 80751268 I10 elevated today, pt left before I remembered to recheck BP. will recheck in a couple weeks at her f/u Ex-smoker 4130977 Z87.89 1 Upper resp iratory infection 41270850 J06.9 resolved, much better Eczema 40205366 L30.9 eyelid dermatitis , likely environmen samantha, but have advised no soaps or make up. will trial eucrisa samples we had in office if fails f/u will trial topical steroid avoid getting eucrisa in the eyes [id number] [facility] [address] [facility] [address] [address] 05/29/2018 09:08:57 05/29/2018 10:17:23 Essential hypertension 37620203 I10 once again BP was elevated will call to come in for recheck later this week Ex-smoker 9745507 Z87.89 1 Upper resp iratory infection 14141937 J06.9 resolved, much better Eczema 28801039 L30.9 eyelid dermatitis , likely environmen samantha, but have advised no soaps or make up. failed eucrisa [id number] [facility] [address] [facility] [address] [address] 06/01/2018 08:59:08 06/01/2018 09:27:55 Essential hypertension 45982368 I10 BP elevated, but better after 5 minutes of rest before BP measuremen t briseydaeles s will increase lisinopril Ex-smoker 8948753 Z87.89 1 Eczema 86136440 L30.9 improving with triamcinol one [id number] [facility] [address] [facility] [address] [address] 07/20/2018 10:56:51 07/20/2018 11:25:43 Essential hypertension 71619210 I10 BP elevated, but better after 5 minutes of rest before BP measuremen laureen wood s will increase lisinopril to 20 mg qd Atopic dermatitis 412550 01 L20.9 [id number] [facility] [address] [facility],[place] [address] 08/24/2018 09:40:31 08/24/2018 10:06:39 Essential hypertension 74571302 I10 much better today. will continue current dose Atopic dermatitis 560871 01 L20.9 had allergy testing Insomnia 107985729 G47.0 0 stable [id number] [facility] [address] [place] [address],[place] [address] 02/20/2019 09:14:40 02/20/2019 09:44:49 Essential hypertension 67350938 I10 doing well no major issues Neck pain 81823573 M54.2 severe and sudden episodes Anemia 208522210 D64.9 rechk cbc Disorder of lung 0519587 1 J98.4 had a pulmonary nodule inright lung Insomnia 727033168 G47.0 0 increase to 10 [id number] [facility] [address],[place] [address] 05/22/2019 10:28:10 05/22/2019 11:08:34 Diarrhea 63214916 R19.7 Thoracic back pain 54901 8004 M54.6 conservati ve care ice/heat, nsaids, tylenol f/u if sx persist [id number] [facility] [address],[place] [address] 06/21/2019 09:08:09 06/21/2019 10:28:05 Diarrhea 13856665 R19.7 sx 2 months try cutting out wheat/dair y if related to IBS recommend GI consult to r/u IBD stool cx were negative celiac panel was negative Thoracic back pain 49967 8004 M54.6 better Insomnia 721096005 G47.0 0 stable Essential hypertension 94620498 I10 was advised by pulginny to d/c metoprolol as it may affect sleep she cut it in half but didn't d/c we will d/c the med and start amlodipine then recheck bp in 1 month [id number] Justin Encinas, [facility] [address] [facility],[place] [address] 08/02/2019 11:42:50 08/02/2019 12:17:00 Essential hypertension 61390530 I10 is running a little high so we will increase dose to amlodipine Irritable bowel syndrome with diarrhea 884695132 K58.0 will add cholestyra mine now Anxiety 46081652 F41.[id number] [facility] [address] [facility] [address] 09/09/2019 11:42:53 09/09/2019 12:11:47 Irritable bowel syndrome with diarrhea 759047845 K58.0 cholestyra mine now exttremely effective and is doing good with bowels Anxiety 53108624 F41.9 see above note Essential hypertension 84569707 I10 bp at home is much better , 120/70's and is stable no prob w/ the meds [id number] Justin Encinas, [facility] [address] [facility] [address] [address] 01/09/2023 11:35:29 01/09/2023 13:27:57 Essential hypertension 31978776 I10 bp at home is much better , 120/70's and is stable no prob w/ the meds Anxiety 85301078 F41.9 see above note Insomnia 475307206 G47.0 0 we will use her old prescripti on that worked well Advance care planning 71 3814059 Z71.89 all set Kate an gular cheilitis 055877593 B37.83 obvious perliche appearance no other abnormalit y [id number] [facility] [address] [facility] [address] [address] 03/10/2023 14:57:35 03/10/2023 16:06:09 Hyponatremia 03311855 E87.1 she will need to stay off the aldactone must consider as the culprit but she is also started on finasterid e by derm so we will have to keep an eye on the Na+ levels closely as she insists she will take the med as her hair loss has become signif Supraventr icular tachycardia 7490083 I47.1 stable now that hyponatrem ia resolving and she is on metoprolol Nummular eczema 21524396 L30.0 has multiple areas of irritation over legs and trunk [id number] Justin Encinas DO [facility] [address],[place] [address] 04/11/2023 10:39:48 04/11/2023 11:00:50 Hyperkalemia 23916391 E87.5 we will rechk as she does not have any major reason to have this elevated Supraventr icular tachycardia 4567584 I47.1 stable now that hyponatrem ia resolving and she is on metoprolol no further issues [id number] Justin Encinas DO [facility] [address],[place] [address] 07/10/2023 10:24:51 07/10/2023 15:58:54 Essential hypertension 45615049 I10 bp here at office is elevated but pt is nervous bp at home is much better , 120/70's and is stable no prob w/ the meds Left upper quadrant pain 863422980 R10.12 ongoing now and not abatingpre sent for many months and is position dependentn o bleeding or melena [id number] MICHELE SOSA [facility] [address] [facility],[place] [address] 07/18/2023 09:55:30 07/19/2023 11:11:19 Essential hypertension 83673573 I10 stable Hyperkalemia 48798331 E8 7.5 stable Hyponatremia 19107937 E8 7.1 stable Removal of simran 98676 001 Z48.02 resolved [id number] Justin Encinas DO [facility] [address] [facility] [address] [address] 10/04/2023 08:05:33 10/04/2023 10:16:56 Diverticulosis of colon 862472285 K57.30 discussed need for diet change and fiber with h2o etc she understand s will call if pain returns and we will have low threshold to ttreat. [id number] MCIHELE SOSA [facility] [address] [facility] [address] [address] 02/16/2024 11:37:16 02/16/2024 14:37:24 Pain of left breast 4895020068 N64.4 agreed to diagnostic mm to r/o new mass Acute mastitis 42449949 N61.0 will set up doxycyclin e, possible mastitis Overactive urinary bladder 528918120 N32.81 will give this a try [id number] MICHELE SOSA [facility] [address] [facility] [address] [facility] [place] [address] 07/08/2024 13:53:12 07/08/2024 15:12:47 Acute urinary tract infection 601451633 N39.0 start on bactrim Supraventr icular tachycardia 0511744 I47.10 stable Depressive disorder 3548 9007 F32.0 start small dose [id number] Justin Encinas, [facility] [address] [facility] [address] [address] 12/20/2024 13:31:00 12/20/2024 14:22:35 Active or passive immunization 872411870 Z23 Adult heal th examination 353451162 Z00.01 doing wel except for what appears to be PMR Depression screening 171 485757 Z13.31 neg Postmenopa usal osteopenia 459173432 M85.80 Polymyalgi a rheumatica 49763700 M35.3 Health Concerns Section Related Observation LastModified by Organization Detai ls LastModified Time None Recorded Concern Status LastModified by Organization Details LastModified Time None Recorded Advance Directives Directive None Recorded Payers Encounter Date Sequence Insurance Name Policy Number Policy Reed Covered Member ID Reed Member ID Guarantor Name 07/18/2023 2 [place] [employer] Emma Godwin [id number] Emma Godwin 07/18/2023 1 [employer] (MEDICARE REPLACEMENT/A DVANTAGE - HMO) [id number] Vera Godaire [id number] Vera Godaire 10/04/2023 2 [place] [employer] [place] Vera Godaire [id number] Vera Godaire 10/04/2023 1 [employer] (MEDICARE REPLACEMENT/A DVANTAGE - HMO) [id number] Vera Godaire [id number] Vera Godaire 02/16/2024 2 [place] Vera Godaire [id number] Vera Godaire 02/16/2024 1 [facility] (MEDICARE REPLACEMENT/A DVANTAGE - HMO) [id number] Vera Godaire [id number] Vera Godaire 07/08/2024 2 [place] Vera Godaire [id number] Vera Godaire 07/08/2024 1 [facility] (MEDICARE REPLACEMENT/A DVANTAGE - HMO) [id number] Vera Godaire [id number] Vera Godaire 12/20/2024 2 [place] [employer] Vera Godaire [id number] Vera Godaire 12/20/2024 1 [facility] (MEDICARE REPLACEMENT/A DVANTAGE - HMO) [id number] Vera Godaire [phone] Vera Godaire Notes Date Note Type Note Provider Name a de Address Organization Details Recorded Time 3 text/html staple removal patient has four simran for a head wound post fall all four removed todayno bleedingno signs of infection wound healed MICHELE SOSA [address] [place], [address], [facility] 07/19/2023 08:51:21 3 text/html patient is evaluated via tele/video assessment per patient consentduring current pandemic has been feeling well and not having any LUQ abd painstates it just faded awaywe reviewed the ct scan in depth and discussed the presence of divertic Justin Encinas DO [address] [place], [address], [facility] 10/04/2023 10:03:10 4 text/html c/o [...] on the left breast MICHELE SOSA [address] [place], [address], [facility] 02/16/2024 12:31:34 4 text/html c/o uti symptoms UTI symptoms: started a few days ago with burning and frequencypositive dipwill send abx SVT stable wanted to try something for depressionnoticed she has more down mood than up moodshusband has commented about her being more sad has never been on anything for depression beforeagreed to lexapro for trial MICHELE SOSA [address] [place], [address], [facility] 07/08/2024 14:30:56 5 text/html Annual [...] able to Justin AYnes Encinas DO [address] [place], [address], [place] [facility] 12/20/2024 13:57:28 OBGyn Episode No OBEpisode recorded.
[2025-01-20 14:21] LABS: Erythrocyte Sedimentation Rate 7 MM/HR (0-20)
== END 2025-01-20 09:44 | disposition home or self-care (01) ==
LOC: HO.MANLDS 09:43
PROVIDERS: Visit Provider Internal Medicine
DX: M35.3 Polymyalgia rheumatica (principal)
CPT/HCPCS: 36415; 85652

== ENCOUNTER 2025-02-07 09:15 | Outpatient (REF) | payer OTHER, SELFPAY ==
[2025-02-07 14:38] LABS: Erythrocyte Sedimentation Rate 6 MM/HR (0-20)
== END 2025-02-07 09:16 | disposition home or self-care (01) ==
LOC: HO.MANLDS 09:15
PROVIDERS: Visit Provider Internal Medicine
DX: M35.3 Polymyalgia rheumatica (principal)
CPT/HCPCS: 36415; 85652

== ENCOUNTER 2025-03-19 10:54 | Outpatient (REF) | payer OTHER, SELFPAY ==
--- OUTSIDE RECORDS SUMMARY | 2025-03-19 12:17 | XMS_ITS | Data Portability ---
Author Organization [facility] Address [address] [place] [address] Assessment Encounter Date Assessment Date Assessment LastModified by Organization Details LastModified Time 12/20/2024 12/20/2024 The patient was advised to continue a healthy diet and exercise regularly. have a mammogram have a switch coupler evaluation have a dermatology skin screening. Labs will be sent to evaluate blood count, renal function lipids and vitamin D. Not available 12/20/2024 13:52:21 02/18/2025 02/18/2025 [id number] [place] [id number] (BUNDLE PERSON) MDM MODERATE MUST MEET 2 OUT OF 3 ELEMENTS: PROBLEMS, DATA OR RISK ELEMENT 1: PROBLEMS ADDRESSED 1 OR MORE CHRONIC ILLNESS WITH EXACERBATION OR 2 OR MORE STABLE CHRONIC ILLNESSES OR 1 UNDIAGNOSED NEW PROBLEM OR 1 ACUTE ILLNESS W/SYMPTOMS OR 1 ACUTE COMPLICATED INJURY ELEMENT 2: DATA MUST MEET 1 OF 3 CATEGORIES CATEGORY 1: REVIEW OF PRIOR EXTERNAL NOTES, REVIEW OF RESULTS, ORDERING OF EACH TEST, ASSESSMENT REQUIRING INDEPENDENT HISTORIAN OR CATEGORY 2: INDEPENDENT INTERPRETATION OF TESTS BY ANOTHER PHYSICIAN OR SPECIALIST OR CATEGORY 3: DISCUSSION OF MGT OR TEST INTERPRETATION W/EXTERNAL PHYSICIAN OR SPECIALIST ELEMENT 3: RISK RISK OF COMPLICATIONS AND/OR MORBIDITY OR MORTALITY OF PATIENT MANAGEMENT PROVIDER MUST THOROUGHLY DOCUMENT EACH ELEMENT THAT IS COVERED Not available 02/18/2025 14:18:51 Plan of Treatment Reminders Order Date Submit Date Provider Last Modified By Organization Details Last Modified Time Details Appointments FOLLOW UP 15 2024 02:15P M DR ENCINAS Not available Not available Not available Lab ESR (erythroc yte sedimenta tion rate), blood - as needed 2024 025 [facility], [facility], [place], [address], 12/23/2024 12:12:01 ESR (erythroc yte sedimenta tion rate), blood - as needed 2024 025 [facility], [place], [address], 01/21/2025 12:52:05 ESR (erythroc yte sedimenta tion rate), blood - as needed 2024 025 [facility], [place], [address], 02/10/2025 11:59:48 ESR (erythroc yte sedimenta tion rate), blood - as needed 2024 025 [facility], [place], [address], 02/18/2025 14:08:34 urinalysi s, dipstick 2023 024 [facility], [address] [facility] [address], [address], [place], [address], 07/08/2024 14:23:19 Referral None recorded. Procedures None recorded. Surgeries None recorded. Imaging bone density 2024 025 [email or web address] [facility], [address] [place], [address], 01/03/2025 10:07:30 MAMMO, diagnosti c, digital, bilateral - left breast pain and possible lump inner lower quadrant around 6-7 oclock 2023 024 [email or web address] Not available 02/27/2024 15:25:26 Medication Orders trazodone 50 mg tablet 2024 025 [facility]acy #2024, [address] [place], [address], 02/18/2025 14:19:20 prednison e 10 mg tablet 2024 025 [facility]/Pharmacy #2024, [address] [place], [address], 01/21/2025 14:49:49 prednison e 10 mg tablet 2024 025 [facility] [address] [place], [address], 12/20/2024 13:57:05 Bactrim DS 800 mg-160 mg tablet 2023 024 [facility] [address] [place], [address], 07/08/2024 14:24:40 escitalop sangeetha 5 mg tablet 2023 024 [email or web address] [facility] [address] [place], [address], 07/30/2024 13:43:29 oxybutyni n chloride ER 5 mg tablet,ex tended release 24 hr 2023 024 [email or web address] [facility] [address] [place], [address], 07/07/2024 09:24:40 doxycycli ne hyclate 100 mg capsule 2023 024 [facility] [address] [place], [address], 07/08/2024 14:25:40 Patient TargetsNo targets recorded. Patient Instructions Encounter Date Encounter Id Patient Instructions Last Modified By Organization Details Last Modified Time 12/20/2024 [id number] polymyalgia rheumatica: care instructions Not available 12/20/2024 13:57:03 01/21/2025 [id number] polymyalgia rheumatica: care instructions Not available 01/21/2025 14:49:48 02/18/2025 [id number] insomnia: care instructions Not available 02/18/2025 14:19:19 Reason for Referral None Reported. Results Created Date Observation Date Name Description Value Unit Range Abnormal Flag Note LastModifiedBy Organization Detail LastModifiedTime 07/08/20 24 07/08/2024 urina lysis , dipst ick Leukocytes Modera te Not Available [facility] [address] [facility] [address], [place], [address], 07/08/2024 13:59:32 07/08/20 24 07/08/2024 urina lysis , dipst ick Nitrite negati ve Not Available [facility] [address], [place], [address], 07/08/2024 13:59:32 07/08/20 24 07/08/2024 urina lysis , dipst ick Urobilinogen .2 Not Available [facility] [address] [facility] [address], [place], [address], 07/08/2024 13:59:32 07/08/20 24 07/08/2024 urina lysis , dipst ick Protein Trace Not Available [address], [place], [address], 07/08/2024 13:59:32 07/08/20 24 07/08/2024 urina lysis , dipst ick pH 6.0 Not Available [address], [place], [address], 07/08/2024 13:59:32 07/08/20 24 07/08/2024 urina lysis , dipst ick Blood Hemoly zed: Trace Not Available [address], [place], [address], 07/08/2024 13:59:32 07/08/20 24 07/08/2024 urina lysis , dipst ick Specific Arg[place] 1.010 Not Available [facility] [address] [facility] [address], [place], [address], 07/08/2024 13:59:32 07/08/20 24 07/08/2024 urina lysis , dipst ick Ketone Negati ve Not Available [facility] [address] [facility] [address], [place], [address], 07/08/2024 13:59:32 07/08/20 24 07/08/2024 urina lysis , dipst ick Bilirubin Negati ve Not Available [facility] [address], [place], [address], 07/08/2024 13:59:32 07/08/20 24 07/08/2024 urina lysis , dipst ick Glucose Negati ve Not Available [facility] [address] [facility] [address], [place], [address], 07/08/2024 13:59:32 07/08/20 24 07/08/2024 urina lysis , dipst ick Appearance Slight ly Cloudy Not Available [facility] [address], [place], [address], 07/08/2024 13:59:32 07/08/20 24 07/08/2024 urina lysis , dipst ick Color Pale Yellow Not Available [facility] [address], [place], [address], 07/08/2024 13:59:32 08/14/20 24 08/14/2024 US, bladd er No observ ation record ed. [email or web address] [facility] [address] [place], [address], 08/16/2024 14:42:47 01/24/20 25 01/22/2025 MAMMO , scree tiki, digit al, bilat eral No observ ation record ed. [facility] ([facility]) - Callback Orders Only [address] [place], [address], 02/18/2025 14:08:33 02/28/2002/27/2025 MAMMO , scree tiki, digit al, bilat eral No observ ation record ed. [facility] (Breast [facility]) - Callback Orders Only [address] [place], [address], 02/27/2025 20:40:20 Result Notes None recorded. Problems Name Problem SNOMED Code Status Onset Date Resolution Date Notes Provider Name and Address Organization Details Recorded Time Neck pain 75121215 Active 2018 Not Available [facility] 3 15:31:16 Irritable bowel syndrome with diarrhea 695969132 Active 2018 Grace goss [facility] 5 10:51:41 Kate angular cheilitis 323515942 Active 2022 Grace goss [facility] 5 10:51:51 Supravent ricular tachycard ia 9578256 Active 2022 Grace goss [facility] 5 10:51:41 Nummular eczema 17149924 Active 2022 Grace goss [facility] 5 10:51:41 Hyperkale adri 37240652 Active 2022 Grace goss [facility] 5 10:51:41 Left upper quadrant pain 341119466 Active 2022 Grace goss [facility] 5 10:51:51 Diverticu losis of colon 357312840 Active 2022 Grace goss [facility] 5 10:51:41 Pain of left breast 6102340182 Active 2023 Grace goss [facility] 5 10:51:51 Acute mastitis 54281039 Active 2023 Grace goss [facility] 5 10:51:51 Overactiv e urinary bladder 427434540 Active 2023 [facility] 10:51:41 Mass of left breast 82082075761 286688 Active 2023 [facility] 5 10:51:41 Depressiv e disorder 81712733 Active 2023 [facility] 5 10:51:41 Acute urinary tract infection 294756888 Active 2023 [facility] 5 10:51:51 Dysuria-f requency syndrome 3967790 Active 2023 [facility] 5 10:51:41 Postmenop ausal osteopeni a 404443587 Active 2024 [facility] 5 10:51:41 Polymyalg ia rheumatic a 68095895 Active 2024 [facility] 5 10:51:41 Essential hypertens ion 89147398 Active 2017 [facility] 5 10:51:42 Degenerat ion of intervert ebral disc 73357461 Active 2017 [facility] 5 10:51:42 Alopecia 51701400 Active 2017 [facility] 5 10:51:42 Insomnia 975525348 Active 2017 [facility] 5 10:51:41 Anxiety 70959637 Active 2017 [facility] 5 10:51:42 Knee pain Active 2017 [facility] 5 10:51:51 Hyponatre adri 81477172 Active 2017 [facility] from 03/31 - 04/02 N/V/D complicat ed by MICHAEL goss, [facility] 5 10:51:42 Disorder of lung 50441407 Active [address] 07/13/17 repeat 01/28 Graceneil goss [facility] 5 10:51:41 Anemia 815983440 Active 2017 [facility] - 06/23 GI bleed, EGD non bleeding ulcers Grace goss [facility] 5 10:51:41 Adenomato us polyp of colon 669767635 Active 2017 c scop Grace goss [facility] 5 10:51:41 Left bundle branch block 66203904 Active 2017 Grace goss [facility] 5 10:51:42 Notes:Some problems listed i n Documents: #[id number], #[id number], #[id number] could not be added to this patient's chart. Please review these documents and add these problems to the patient's chart manually as needed. Problem Notes None recorded. Procedures Surgical History Date Name Laterality Status Provider Name and Address Organization Details Recorded Time 07/18/20 23 Suture/Staple removal completed MICHELE SOSA [address] [place] [address], [place], [address], [facility] 07/19/2023 08:50:53 06/26/20 17 Colonoscopy completed Kanwal Young [facility] 06/20/2018 11:36:37 Imaging Results Imaging Date Name Status LastModified by Organiz ation Details LastModified Time 08/14/2024 US, bladder completed [email or web address] [address], [address], 08/16/2024 14:42:47 01/22/2025 MAMMO, screening, digital, bilateral completed [facility] ([facility]) - Callback Orders Only [address] [place] [address], [address], 02/18/2025 14:08:33 02/27/2025 MAMMO, screening, digital, bilateral completed [email or web address] [facility] ([facility]) - Callback Orders Only [address] [facility], [place], [address], 02/27/2025 20:40:20 Procedure Notes None recorded. Medical Equipment None Reported. Allergies Allergen ID Allergen Name Allergen Category Reaction Reaction Severity Criticality Documentation Date Start Date Code Code System Note Provider Name and Address Organization Details Recorded Time 6708 spironola ctone medicatio n other severe Not available 03/10/2023 9997 RxNorm sever e hypon atrem ia occur ed Not Available [facility] 3 15:31:16 Medications Name Sig Start Date Stop Date Status Note LastModified by Organization Details LastModified Time prednisone 10 mg tablet TAKE 3 TABLETS BY MOUTH EVERY DAY active Not Available Not Available No t Available doxycycline hyclate 100 mg capsule TAKE 1 CAPSULE BY MOUTH TWICE A DAY FOR 7 DAYS 07/08 completed Not Available Not Available Not Available trazodone 50 mg tablet TAKE 1 TABLET BY MOUTH EVERY DAY FOR 30 DAYS active Not Available Not Available No t Available oxybutynin chloride ER 10 mg tablet,exte [...] USE MUST LAST 45 DAYS PER MD 02/18 completed Not Available Not Available Not Available methylpredn isolone 4 mg tablets in [...] Available Not Available Not Available Fluad Quad [id number](6 5yr up)(PF) 60 mcg (15 mcg x [...] Updated DateTime 4 151.13 cm 26 kg/m2 51906.5 2 g 71 /min 95 % 95 % 124 mm[Hg] 80 mm[Hg] Wiliam Chen [facility] 4 11:56:16 Date Recorded Body height Body mass index (BMI) Body weight Heart rate Oxygen saturation Oxygen saturation in Arterial blood by Pulse oximetry Systolic blood pressure Diastolic blood pressure Provider Name and Address Organization Details Last Updated DateTime 4 151.13 cm 25.9 kg/m2 27793.7 3 g 76 /min 95 % 95 % 148 mm[Hg] 78 mm[Hg] Grace Perez [facility] 4 14:05:33 Date Recorded Body height Body mass index (BMI) Body weight Heart rate Oxygen saturation Oxygen saturation in Arterial blood by Pulse oximetry Systolic blood pressure Diastolic blood pressure Provider Name and Address Organization Details Last Updated DateTime 5 151.13 cm 25.8 kg/m2 02722.0 1 g 80 /min 98 % 98 % 170 mm[Hg] 80 mm[Hg] Radha Richardson [facility] 5 13:38:05 Date Recorded Body height Body mass index (BMI) Body weight Heart rate Oxygen saturation Oxygen saturation in Arterial blood by Pulse oximetry Systolic blood pressure Diastolic blood pressure Provider Name and Address Organization Details Last Updated DateTime 5 151.13 cm 26 kg/m2 91060.6 g 88 /min 93 % 93 % 138 mm[Hg] 82 mm[Hg] Grace Perez [facility] 5 14:36:49 Date Recorded Body height Body mass index (BMI) Body weight Heart rate Oxygen saturation Oxygen saturation in Arterial blood by Pulse oximetry Systolic blood pressure Diastolic blood pressure Provider Name and Address Organization Details Last Updated DateTime 5 151.13 cm 26 kg/m2 96601.6 g 82 /min 99 % 99 % 160 mm[Hg] 84 mm[Hg] Radha Richardson [facility] 13:50:30 Social History Question Answer Notes LastModified by Organizat ion Details LastModified Time Tobacco Smoking Status Former Smoker Radha goss [facility] 12/20/2024 13:35:59 What Was The Date Of Your Most Recent Tobacco Screening? 02/18/2025 [email or web address] Information not available 02/18/2025 How Many Years Have You Smoked Tobacco? 40 [id number] Information not available 09/15/2020 Do You Or [...] influenza, unspecified formulation 2 completed Not Available [facility] 09/02/2023 15:31:16 influenza, unspecified formulation 4 completed Addison goss [facility] 09/30/2024 08:11:09 Influenza, split virus, quadrivalent, preservative 9 completed Not Available [facility] 09/02/2023 15:31:16 Pneumococcal conjugate PCV 13 9 completed Not Available [facility] 09/02/2023 15:31:16 Past Encounters Encounter ID Performer Location Encounter Start Date Encounter Closed Date Diagnosis/Indication Diagnosis SNOMED-CT Code Diagnosis ICD10 Code Diagnosis Note [id number] Justin Encinas DO [facility] [address] [address] 03/19/2018 10:01:02 03/19/2018 11:54:51 Acute bronchitis 90223257 J20.9 due to h/o tobacco, there is increased risk for bacterial etiology Essential hypertension 16021122 I10 elevated today, probably due to illness Pharyngitis 412566139 J0 2.9 Ex-smoker 2019059 Z87.89 1 [id number] Justin Encinas DO [facility] [address] [facility] [address] [facility] [address] [address] 03/30/2018 08:54:37 03/30/2018 09:49:19 Acute bronchitis 98588817 J20.9 cough has resolved Essential hypertension 58230728 I10 improved Pharyngitis 402952156 J0 2.9 improved Ex-smoker 3715094 Z87.89 1 Abrasion 566366100 S80.2 12A [id number] Justin Encinas [facility] [address] [facility] [address] [facility] [place] [address] 04/27/2018 10:10:44 04/27/2018 10:59:42 Essential hypertension 93272948 I10 elevated today, probably due to illness Pharyngitis 974703292 J0 2.9 resolved after initial presentati on Ex-smoker 3107617 Z87.89 1 Upper resp iratory infection 20541068 J06.9 This is likely viral as her lungs are normal she is already on proair if needed continue mucinex- dm she still has tessalon [id number] Justin Encinas [facility] [address] [facility] [address],[place] [address] 05/08/2018 10:38:12 05/08/2018 11:50:59 Essential hypertension 45611050 I10 elevated today, pt left before I remembered to recheck BP. will recheck in a couple weeks at her f/u Ex-smoker 7591935 Z87.89 1 Upper resp iratory infection 82943004 J06.9 resolved, much better Eczema 47192368 L30.9 eyelid dermatitis , likely environmen samantha, but have advised no soaps or make up. will trial eucrisa samples we had in office if fails f/u will trial topical steroid avoid getting eucrisa in the eyes [id number] Justin Encinas [facility] [address] [facility] [address] [place] [address] 05/29/2018 09:08:57 05/29/2018 10:17:23 Essential hypertension 46877016 I10 once again BP was elevated will call to come in for recheck later this week Ex-smoker 6353476 Z87.89 1 Upper resp iratory infection 29221531 J06.9 resolved, much better Eczema 06629399 L30.9 eyelid dermatitis , likely environmen samantha, but have advised no soaps or make up. failed eucrisa [id number] Justin Encinas [facility] [address] [facility] [address] [address] 06/01/2018 08:59:08 06/01/2018 09:27:55 Essential hypertension 85019752 I10 BP elevated, but better after 5 minutes of rest before BP measuremen t nonetheles s will increase lisinopril Ex-smoker 3638878 Z87.89 1 Eczema 00416525 L30.9 improving with triamcinol one [id number] Justin EmersonYnes Encinas [facility] [address] [facility] [address] [address] 07/20/2018 10:56:51 07/20/2018 11:25:43 Essential hypertension 35321178 I10 BP elevated, but better after 5 minutes of rest before BP measuremen t nonetheles s will increase lisinopril to 20 mg qd Atopic dermatitis 224929 01 L20.9 [id number] Justin Encinas [facility] [address] [facility] [address] [address] 08/24/2018 09:40:31 08/24/2018 10:06:39 Essential hypertension 43798212 I10 much better today. will continue current dose Atopic dermatitis 041395 01 L20.9 had allergy testing Insomnia G47.0 0 stable [id number] Justin Encinas [facility] [address] [facility] [address] [address] 02/20/2019 09:14:40 02/20/2019 09:44:49 Essential hypertension 92708034 I10 doing well no major issues Neck pain 11935636 M54.2 severe and sudden episodes Anemia 075310161 D64.9 rechk cbc Disorder of lung 0257855 1 J98.4 had a pulmonary nodule inright lung Insomnia 814815524 G47.0 0 increase to 10 [id number] Justin Encinas [facility] [address] [facility] [address] [address] 05/22/2019 10:28:10 05/22/2019 11:08:34 Diarrhea 28783801 R19.7 Thoracic back pain 50785 8004 M54.6 conservati ve care ice/heat, nsaids, tylenol f/u if sx persist [id number] Justin Encinas [facility] [address] [facility] [address] 06/21/2019 09:08:09 06/21/2019 10:28:05 Diarrhea 89171919 R19.7 sx 2 months try cutting out wheat/dair y if related to IBS recommend GI consult to r/u IBD stool cx were negative celiac panel was negative Thoracic back pain 33422 8004 M54.6 better Insomnia 555914883 G47.0 0 stable Essential hypertension 51003034 I10 was advised by pulginny to d/c metoprolol as it may affect sleep she cut it in half but didn't d/c we will d/c the med and start amlodipine then recheck bp in 1 month [id number] Justin Encinas [facility] [address] [facility] [address] 08/02/2019 11:42:50 08/02/2019 12:17:00 Essential hypertension 81898836 I10 is running a little high so we will increase dose to amlodipine Irritable bowel syndrome with diarrhea 112200415 K58.0 will add cholestyra mine now Anxiety 87965599 F41.9 [id number] Justin Encinas [facility] [address] [facility] [address] [facility] [address] 09/09/2019 11:42:53 09/09/2019 12:11:47 Irritable bowel syndrome with diarrhea 737930424 K58.0 cholestyra mine now exttremely effective and is doing good with bowels Anxiety 40780975 F41.9 see above note Essential hypertension 69236875 I10 bp at home is much better , 120/70's and is stable no prob w/ the meds [id number] Justin Encinas [facility] [address] [facility] [address] [address] 01/09/2023 11:35:29 01/09/2023 13:27:57 Essential hypertension 30848129 I10 bp at home is much better , 120/70's and is stable no prob w/ the meds Anxiety 89483634 F41.9 see above note Insomnia 325261241 G47.0 0 we will use her old prescripti on that worked well Advance care planning 71 3300153 Z71.89 all set Kate an gular cheilitis 536786106 B37.83 obvious perliche appearance no other abnormalit y [id number] Justin Encinas [facility] [address] [facility],[place] [address] 03/10/2023 14:57:35 03/10/2023 16:06:09 Hyponatremia 77693047 E87.1 she will need to stay off the aldactone must consider as the culprit but she is also started on finasterid e by derm so we will have to keep an eye on the Na+ levels closely as she insists she will take the med as her hair loss has become signif Supraventr icular tachycardia 0920473 I47.1 stable now that hyponatrem ia resolving and she is on metoprolol Nummular eczema 30702264 L30.0 has multiple areas of irritation over legs and trunk [id number] Justin Encinas [facility] [address] [facility],[place] [address] 04/11/2023 10:39:48 04/11/2023 11:00:50 Hyperkalemia 13896292 E87.5 we will rechk as she does not have any major reason to have this elevated Supraventr icular tachycardia 1045417 I47.1 stable now that hyponatrem ia resolving and she is on metoprolol no further issues [id number] Justin Encinas [facility] [address] [facility],[place] [address] 07/10/2023 10:24:51 07/10/2023 15:58:54 Essential hypertension 24953793 I10 bp here at office is elevated but pt is nervous bp at home is much better , 120/70's and is stable no prob w/ the meds Left upper quadrant pain 595792412 R10.12 ongoing now and not abatingpre sent for many months and is position dependentn o bleeding or melena [id number] Justin Encinas [facility] [address] [facility] [address] [place] [address] 07/18/2023 09:55:30 07/19/2023 11:11:19 Essential hypertension 79911274 I10 stable Hyperkalemia 70504063 E8 7.5 stable Hyponatremia 02062497 E8 7.1 stable Removal of simran 98602 001 Z48.02 resolved [id number] Justin Encnias [facility] [address] [facility] [address] [address] 10/04/2023 08:05:33 10/04/2023 10:16:56 Diverticulosis of colon [id number] K57.30 discussed need for diet change and fiber with h2o etc she understand s will call if pain returns and we will have low threshold to ttreat. [id number] Justin Encinas [facility] [address] [facility] [address] 02/16/2024 11:37:16 02/16/2024 14:37:24 Pain of left breast [id number] N64.4 agreed to diagnostic mm to r/o new mass Acute mastitis 96961710 N61.0 will set up doxycyclin e, possible mastitis Overactive urinary bladder [id number] N32.81 will give this a try [id number] Justin Encinas [facility] [address] [address] 07/08/2024 13:53:12 07/08/2024 15:12:47 Acute urinary tract infection [id number] N39.0 start on bactrim Supraventr icular tachycardia 5198588 I47.10 stable Depressive disorder 3548 9007 F32.0 start small dose [id number] Justin Encinas [facility] [address] [address] 12/20/2024 13:31:00 12/20/2024 14:22:35 Active or passive immunization 120117045 Z23 Adult heal th examination [id number] Z00.01 doing wel except for what appears to be PMR Depression screening 171 923813 Z13.31 neg Postmenopa usal osteopenia 405793074 M85.80 Polymyalgi a rheumatica 89869998 M35.3 [id number] Justin Encinas, [facility] [address] [address] 01/21/2025 14:25:56 01/21/2025 14:55:05 Depression screening 997117346 Z13.31 neg Polymyalgi a rheumatica 06023722 M35.3 we dionicio l drop her down to 30mg and rechk lab in about a week then go from there [id number] Justin Encinas, [facility] [address],[place] [address] 02/18/2025 13:43:59 02/18/2025 14:42:40 Depressive disorder 04831598 F32.0 pos Essential hypertension 18335277 I10 bp here at office is elevated but pt is nervous bp at home is much better , 120/70's and is stable no prob w/ the meds Polymyalgi a rheumatica 41327100 M35.3 now esr at 5 is taking 20mg totaland we will start weaning her down in earnestwil l cut to 15mg for 2 weeks and if good , will cut to 10mg and then in 2 more weeks get a blood test and see pt Depression screening 171 913583 Z13.31 neg Insomnia 759741070 G47.0 0 we will use her old prescripti on that worked well Health Concerns Section Related Observation LastModified by Organization Detai ls LastModified Time None Recorded Concern Status LastModified by Organization Details LastModified Time None Recorded Advance Directives Directive None Recorded Payers Encounter Date Sequence Insurance Name Policy Number Policy Reed Covered Member ID Reed Member ID Guarantor Name 02/16/2024 2 [place]ICARE [place]: [employer] Emma Godwin [id number] Emma Godwin 02/16/2024 1 [facility] (MEDICARE REPLACEMENT/A DVANTAGE - HMO) [id number] Emma Godwin [id number] Vera Godaire 07/08/2024 2 [place]: [employer] Vera Godaire [id number] Vera Godaire 07/08/2024 1 [facility] (MEDICARE REPLACEMENT/A DVANTAGE - HMO) [id number] Vera Godaire [id number] Vera Godaire 12/20/2024 2 [place]: [employer] Vera Godaire [id number] Vera Godaire 12/20/2024 1 [facility] (MEDICARE REPLACEMENT/A DVANTAGE - HMO) [id number] Vera Godaire [id number] Vera Godaire 01/21/2025 1 [facility] (MEDICARE REPLACEMENT/A DVANTAGE - HMO) [id number] Vera Godaire [id number] Vera Godaire 02/18/2025 1 [facility] (MEDICARE REPLACEMENT/A DVANTAGE - HMO) [id number] Vera Godaire [id number] Vera Godaire Notes Date Note Type Note Provider Name and Address Organization Details Recorded Time 4 text/htm l c/o left breast pain the patient is [...] pressing on the left breast MICHELE SOSA [address] [place] [address], [id number], [facility] 02/16/2024 12:31:34 4 text/htm l c/o uti symptoms UTI symptoms: started a few days ago with burning and frequencypositive dipwill send abx SVT stable wanted to try something for depressionnoticed she has more down mood than up moodshusband has commented about her being more sad has never been on anything for depression beforeagreed to lexapro for trial MICHELE SOSA [address] [place], [address], [facility] 07/08/2024 14:30:56 5 text/htm l Annual WellnessReported bypatient.Diet and Nutrition:healthy diet Fracture [...] yoga etc and not able to Justin Encinas DO [address] [place], [address], [facility] 12/20/2024 13:57:28 5 text/htm l has noted that she feels markedly better no pain at allbut she is having side effects from the pred including the hernandez fascies , irritable and appetite and insomnia discussed this in detail Justin Encinas DO [address] [place], [address], [facility] 01/21/2025 14:52:42 5 text/htm l Care Management - Anxiety/DepressionReport ed bypatient.Severity:denie s suicidal ideations; able to maintain relationships; does not interfere with activities of daily living Context:no major life stressors Associated Symptoms:denies homicidal ideations; no significant weight gain; no significant weight loss; no visual/auditory hallucinations; no delusions; no shortness of breath; mood good; no anxiety; no crying spells; no panic; no isolation; sleeping well; appetite appropriate; energy appropriate; no apathy; maintaining functionalityCare Management - HypertensionReported bypatient.Self Care:not under emotional stress Severity:symptoms are improving; does not interfere with daily activities Associated Symptoms:no dizziness; no lightheadedness; no chest pain; no shortness of breath; no palpitations; no edema; no calf muscle cramps; no blurred vision; no confusion; no headaches; no fatigue not good due to side effects from pred wgt gain irritable insomnia etc and bp uplast esr is 5 and doing good Justin Encinas, DO [address] [facility], [place], [address], [facility] 02/18/2025 14:36:19 OBGyn Episode No OBEpisode recorded.
[2025-03-19 15:30] LABS: Erythrocyte Sedimentation Rate 14 MM/HR (0-20)
== END 2025-03-19 10:55 | disposition home or self-care (01) ==
LOC: HO.MANLDS 10:54
PROVIDERS: Visit Provider Internal Medicine
DX: M35.3 Polymyalgia rheumatica (principal)
CPT/HCPCS: 36415; 85652